=== PATIENT | male | born 1960 | race Hispanic/Latino ===

== ENCOUNTER 2018-12-12 06:11 | Day surgery (SDC) | payer MEDICARE ==
[~2018-12-12 06:11] MED LIST: ANCEF/STERILE WATER 2 GM/20 ML 2 GM/20 ML SYRINGE IV NR; NACL 0.9% 1000 ML 1,000 ML IV SCH
[2018-12-12] MEDS ORDERED: HEPARIN/NS 5000 UNIT/500ML(CATH LAB) 1,000 ML IR ONE (09:42)
[2018-12-12] MEDS ORDERED: NACL 0.9% 250ML 250 ML ONE (10:03)
[2018-12-12] MEDS: VERSED ONE ×5 (10:08→11:24)
[2018-12-12] MEDS: XYLOCAINE 2% INFILTRATI ONE ×3 (10:09→11:29)
[2018-12-12] MEDS: SUBLIMAZE ONE ×5 (10:09→11:24)
[2018-12-12] MEDS ORDERED: SUBLIMAZE ONE (11:42)
[2018-12-12] MEDS ORDERED: VERSED ONE (11:42)
[2018-12-12] MEDS: HEPARIN 10,000 UNITS/10 ML ONE ×2 (11:44→11:45)
[2018-12-12] MEDS ORDERED: XYLOCAINE 1%/ EPI 1:100,000 INFILTRATI ONE (11:52)
--- NOTE | 2018-12-12 12:01 | Short Stay Summary ---
Short Stay Documentation Date of service: 12/12/18 Narrative H&P: 57 year old male with ESRD with malfunctioning AVF. - History Principal diagnosis: AVF malfunction H&P: obtained from office - Allergies and Medications Current Medications: Allergies No Known Allergies Allergy (Unverified 12/12/18 06:38) Home Medications Medication Instructions Recorded Confirmed Last Taken Type Calcitriol [Rocaltrol] 1 cap PO DAILY 12/12/18 12/12/18 12/10/18 History Furosemide [Lasix TAB] 20 mg PO DAILY 12/12/18 12/12/18 12/10/18 History L.acidoph,Paracasei, B.lactis 1 each PO DAILY 12/12/18 12/12/18 12/10/18 History [Probiotic] Multivit-Min36/Iron/Folic Acid 1 each PO DAILY 12/12/18 12/12/18 12/10/18 History [Geritol Complete Tablet] NIFEdipine [Nifedipine ER] 60 mg PO DAILY 12/12/18 12/12/18 12/10/18 History Nebivolol HCl [Bystolic] 10 mg PO DAILY 12/12/18 12/12/18 12/10/18 History Tamsulosin [Flomax] 0.4 mg PO QDAY 12/12/18 12/12/18 12/10/18 History Venlafaxine [Effexor] 75 mg PO DAILY 12/12/18 12/12/18 12/10/18 History Zolpidem [Ambien] 10 mg PO QHS 12/12/18 12/12/18 12/11/18 History Active Medications Cefazolin Sodium (Ancef/Sterile Water 2 Gm/20 Ml) 2 gm in 20 mls @ 80 mls/hr IV PREOP NR; Protocol Stop: 12/12/18 16:00 Sodium Chloride (Nacl 0.9% 1000 Ml) 1,000 mls @ 42 mls/hr IV DIRECT JACOB - Physical exam General appearance: no acute distress HEENT: EOMI Lungs: Normal air movement Gastrointestinal: normal Extremities: normal temperature, normal color - Brief post op/procedure progress note Date of procedure: 12/12/18 Pre-op diagnosis: AVF malfunction Post-op diagnosis: same Procedure: 1. Ultrasound guided access of the left arm brachio-cephalic AVF 2. Fistulogram 3. Angioplasty of the left subclavian vein with a 12 mm x 60 mm angioplasty balloon 4. Angioplasty of the peripheral cephalic vein with a 12 mm x 60 mm angioplasty balloon 5. Angioplasty of the mid cephalic vein with an 10 mm x 40 mm angioplasty balloon 6. Angioplasty of the cephalic arch with an 8 mm x 80 mm angioplasty balloon 7. Ultrasound guided access of the right internal jugular vein 8. Fluoroscopic guided placement of a right internal jugular tunneled 23 cm tip to cuff dual lumen hemodialysis catheter 9. Fluoroscopic guidance of a central catheter placement Anesthesia: local (w/ conscious sedation) Surgeon: PATRICIA GIBBONS Estimated blood loss: minimal Condition: stable - Hospital course Hospital course: Ultrasound of the left cephalic vein AVF was incredibly deep (x>1 cm) and therefore the vein would not be reliably accessed by HD Placed HD catheter in the right neck and will reassess in 2 weeks If swelling persists, then will need elevation. - Disposition Condition at discharge: Stable Disposition: [id number] TO HOME OR SELFCARE - Discharge Diagnoses (1) Dialysis AV fistula malfunction Status: Acute Short Stay Discharge Plan Activity: advance as tolerated Weight Bearing Status: Weight Bear as Tolerated Diet: renal Wound: keep clean and dry, other (do not get hemodialysis catheter wet or it will get infected ; keep it dry ; sponge baths ; no more showers until catheter removed) Follow up with: TAPAN SANCHEZ DO [Primary Care Provider] - 7 Days
--- NOTE | 2018-12-12 12:04 | Operative Report ---
Operative Report Operative Report: EXAM: 1. Ultrasound guided access of the left arm brachio-cephalic AVF 2. Fistulogram 3. Angioplasty of the left subclavian vein with a 12 mm x 60 mm angioplasty balloon 4. Angioplasty of the peripheral cephalic vein with a 12 mm x 60 mm angioplasty balloon 5. Angioplasty of the mid cephalic vein with an 10 mm x 40 mm angioplasty balloon 6. Angioplasty of the cephalic arch with an 8 mm x 80 mm angioplasty balloon 7. Ultrasound guided access of the right internal jugular vein 8. Fluoroscopic guided placement of a right internal jugular tunneled 23 cm tip to cuff dual lumen hemodialysis catheter 9. Fluoroscopic guidance of a central catheter placement DATE: 12/12/18 PATTERNMAKER: PATRICIA GIBBONS MD INDICATION: AV fistula malfunction with end-stage renal disease MEDICATIONS: Please see nursing report for full details. PROCEDURE: The risks, benefits, and alternatives of the procedure were discussed and w cynthiaten informed consent was obtained. The patient was transported in stable condition to the angiography suite. The patient's left arm AV brachiocephalic fistula was assessed by ultrasound and was patent. The patient was prepped and draped in a sterile fashion. Under ultrasound guidance, the left arm AV fistula was accessed with a 21-gauge micropuncture needle. The area was anesthetized prior to access. 0.018 inch wire was advanced through the micropuncture needle into the fistula and then the needle was exchanged for a 5 Malagasy transitional dilator. The inner dilator and wire were removed and a 0.035 inch wire was advanced through the venous outflow. The transitional dilator was exchanged ultimately for a 7 Malagasy short sheath. Fistulogram was performed of the venous outflow and central veins. Reflux into the arterial anastomosis was performed. Digital subtraction angiography demonstrates a 30% mid cephalic vein stenosis with a large cephalic vein with numerous collateral side branches arising from the cephalic vein fistula. There was a 30% cephalic arch narrowing and a 30% to 40% left subclavian vein narrowing. 12 mm x 60 mm angioplasty balloon was used to perform angioplasty of the subclavian vein and the cephalic arch. 10 mm angioplasty balloon was used to perform angioplasty of the mid cephalic vein and a 12 mm angioplasty balloon which she is to perform angioplasty of the mid cephalic vein. Reflux angiography was performed demonstrating no anastomotic narrowing. There are numerous side branches along the cephalic vein fistula. Ultrasound is used to evaluate the depth of the fistula which was greater than 1 cm deep throughout most of the fistula length making it very difficult to puncture. I realize that this was the most important issue with the fistula and would require PermCath placement and evaluation in 2 weeks to see if the depth had decreased. If it has not decreased, the patient will require a fistula elevation. The wire was removed and the site was closed with a 4-0 Vicryl suture. The sheath was then removed. Hemostasis was achieved with slight manual compression. PermCath access was then prepped for the patient. The patient was prepped and draped in a sterile fashion. The patient's right internal jugular vein was assessed with ultrasound and determined to be patent. The puncture site was anesthetized. Under sonographic guidance, the right internal jugular vein was punctured with a 21-gauge micropuncture needle and a 0.018 inch wire was advanced into the inferior vena cava. The micropuncture needle was exchanged for a transitional dilator and the wire was retracted into the right atrium to simran intravascular distance. The wire and inner dilator were removed. 0.035 inch wire was advanced through the transitional dilator into the inferior vena cava. A suitable exit site was identified on the patient's chest inferior and lateral to the venotomy. The site was anesthetized with local anesthetic and the track was anesthetized. Dermatotomy was made. The PermCath was attached to the tunneling device and tunneled between the dermatotomy to the venotomy. Over the 0.035 inch wire, serial dilatation was performed with ultimate placement of a peel-away sheath. The catheter was advanced through the peel- away sheath after the wire was removed and positioned centrally under fluoroscopic guidance. The peel-away sheath was removed. Excellent flow was obtained through the dialysis catheter with 20 mL syringes. The catheter tip is in the right atrium. 3-0 Vicryl suture was used to close the venotomy and Dermabond was then applied. 2-0 Ethilon suture was used to secure the catheter at the dermatotomy. The catheter was charged with heparin 1000 units/mL space. Sterile dressing and biopatch applied. The patient was transferred from the angiography suite back to the floor in stable condition. IMPRESSION: 1. Successful angioplasty of the central and peripheral dialysis access. 2. Successful placement of a PermCath. Patient will follow-up in 2 weeks in the office for further management.
[2018-12-12 15:21] VITALS: BP 122/56
== END 2018-12-12 06:12 | disposition home or self-care (01) ==
LOC: CATHLABREC 06:11
PROVIDERS: ATTEND Radiology Diagnostic Radiology
DX: T82.510A Breakdown (mechanical) of surgically created arteriovenous fistula, initial encounter (principal); I13.2 Hypertensive heart and chronic kidney disease with heart failure and with stage 5 chronic kidney disease, or end stage renal disease; N18.6 End stage renal disease; I50.9 Heart failure, unspecified; D64.9 Anemia, unspecified; M19.90 Unspecified osteoarthritis, unspecified site; F32.9 Major depressive disorder, single episode, unspecified; Z79.899 Other long term (current) drug therapy; Z98.890 Other specified postprocedural states; Y83.2 Surgical operation with anastomosis, bypass or graft as the cause of abnormal reaction of the patient, or of later complication, without mention of misadventure at the time of the procedure
CPT/HCPCS: 36415; 36558; 36902; 36907; 76937; 77001; 84132; 99156; 99157; C1725; C1750; C1751; C1769; C1894; J1644; J2250; J3010; J7050; Q9967

== ENCOUNTER 2021-08-17 21:57 | Inpatient (IN) | payer MEDICARE ==
[2021-08-17] MEDS ORDERED: cefTRIAXone/NS 2 GM/100 ML 2 GM/100 ML BAG IV ONE (22:23)
[2021-08-17] MEDS ORDERED: AZITHROMYCIN/NS 500 MG/250 ML 500 MG/250 ML BAG IV ONE (22:23)
[2021-08-17] MEDS ORDERED: dexAMETHasone 4 MG/ML VIAL IV ONE (22:24)
--- NOTE | 2021-08-17 22:24 | Emergency Department Report ---
ED Shortness of Breath HPI - General Chief Complaint: Dyspnea/Respdistress Stated Complaint: SOB Time Seen by Provider: 08/17/21 22:18 Source: patient, EMS Mode of arrival: Stretcher Limitations: Physical Limitation - History of Present Illness Initial Comments: Patient is a 60-year-old male that [facility] with complaints of cough, fever, shortness of breath. Patient states his symptoms started at 6 PM tonight. Patient states he felt fine prior to that. Patient states that shortness of breath better with rest and worse with exertion. Patient states his cough is better with rest and worse with exertion. Patient dates his cough is dry. Patient denies chest pain. Patient states he has received the first dose of the Pfizer vaccine but was due for the second dose this week. Patient brought in by EMS. Report received from EMS. EMS states that the patient's heart rate was 116, the patient's oxygen saturation was 88% on room air and the patient was placed on 2 L of oxygen and it began satting at 93%. Patient's temperature was 102.4. MD Complaint: shortness of breath, cough -: Sudden Severity: severe Improves With: rest Worsens With: exertion Context: recent URI Associated Symptoms: fever, cough - Related Data Home Medications Medication Instructions Recorded Confirmed Last Taken Furosemide [Lasix TAB] 20 mg PO DAILY 12/12/18 12/12/18 12/10/18 L.acidoph,Paracasei, B.lactis 1 each PO DAILY 12/12/18 12/12/18 12/10/18 [Probiotic] Multivit-Min36/Iron/Folic Acid 1 each PO DAILY 12/12/18 12/12/18 12/10/18 [Geritol Complete Tablet] NIFEdipine [Nifedipine ER] 60 mg PO DAILY 12/12/18 12/12/18 12/10/18 Nebivolol HCl [Bystolic] 10 mg PO DAILY 12/12/18 12/12/18 12/10/18 Tamsulosin [Flomax] 0.4 mg PO QDAY 12/12/18 12/12/18 12/10/18 Venlafaxine [Effexor] 75 mg PO DAILY 12/12/18 12/12/18 12/10/18 Zolpidem (Nf) [Ambien] 10 mg PO QHS 12/12/18 12/12/18 12/11/18 calcitrioL [Rocaltrol] 1 cap PO DAILY 12/12/18 12/12/18 12/10/18 Previous Rx's Medication Instructions Recorded Last Taken Type HYDROcodone/APAP 5-325 [Hugo 1 - 2 each PO Q6HR PRN #25 tablet 12/12/18 Unknown Rx 5/325] Allergies Allergy/AdvReac Type Severity Reaction Status Date / Time No Known Allergies Allergy Unverified 12/12/18 06:38 ED Review of Systems ROS: Stated complaint: SOB Other details as noted in HPI Constitutional: chills, fever Eyes: denies: eye pain, eye discharge, vision change ENT: denies: ear pain, throat pain Respiratory: see HPI, cough, shortness of breath. denies: wheezing Cardiovascular: denies: chest pain, palpitations Endocrine: no symptoms reported Gastrointestinal: denies: abdominal pain, nausea, diarrhea Genitourinary: denies: urgency, dysuria Musculoskeletal: denies: back pain, joint swelling, arthralgia Skin: denies: rash, lesions Neurological: denies: headache, weakness, paresthesias Psychiatric: denies: anxiety, depression Hematological/Lymphatic: denies: easy bleeding, easy bruising ED Past Medical Hx - Past Medical History Previous Medical History?: Yes Hx Hypertension: Yes Hx Heart Attack/AMI: No Hx Congestive Heart Failure: Yes Hx Renal Disease: Yes (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 ,,Sun) Hx Arthritis: Yes Hx Psychiatric Treatment: Yes (depression) Hx HIV: No Additional medical history: BPH, GI bleed, anemia - Surgical History Past Surgical History?: Yes Hx Coronary Stent: No Additional Surgical History: colon, AV fistula, back (L5-S1) - Family History Family history: no significant - Social History Smoking Status: Never Smoker Substance Use Type: None - Medications Home Medications: Home Medications Medication Instructions Recorded Confirmed Last Taken Type Furosemide [Lasix TAB] 20 mg PO DAILY 12/12/18 12/12/18 12/10/18 History HYDROcodone/APAP 5-325 [Hugo 1 - 2 each PO Q6HR PRN #25 tablet 12/12/18 Unknown Rx 5/325] L.acidoph,Paracasei, B.lactis 1 each PO DAILY 12/12/18 12/12/18 12/10/18 History [Probiotic] Multivit-Min36/Iron/Folic Acid 1 each PO DAILY 12/12/18 12/12/18 12/10/18 History [Geritol Complete Tablet] NIFEdipine [Nifedipine ER] 60 mg PO DAILY 12/12/18 12/12/18 12/10/18 History Nebivolol HCl [Bystolic] 10 mg PO DAILY 12/12/18 12/12/18 12/10/18 History Tamsulosin [Flomax] 0.4 mg PO QDAY 12/12/18 12/12/18 12/10/18 History Venlafaxine [Effexor] 75 mg PO DAILY 12/12/18 12/12/18 12/10/18 History Zolpidem (Nf) [Ambien] 10 mg PO QHS 12/12/18 12/12/18 12/11/18 History calcitrioL [Rocaltrol] 1 cap PO DAILY 12/12/18 12/12/18 12/10/18 History ED Physical Exam - General Limitations: Physical Limitation General appearance: alert, in no apparent distress - Head Head exam: Present: atraumatic, normocephalic - Eye Eye exam: Present: normal appearance - ENT ENT exam: Present: mucous membranes moist - Neck Neck exam: Present: normal inspection - Respiratory Respiratory exam: Present: normal lung sounds bilaterally. Absent: respiratory distress - Cardiovascular Cardiovascular Exam: Present: regular rate, normal rhythm. Absent: systolic murmur, diastolic murmur, rubs, gallop - GI/Abdominal GI/Abdominal exam: Present: soft, normal bowel sounds - Rectal Rectal exam: Present: deferred - Extremities Exam Extremities exam: Present: normal inspection - Back Exam Back exam: Present: normal inspection - Neurological Exam Neurological exam: Present: alert, oriented X3 - Psychiatric Psychiatric exam: Present: normal affect, normal mood - Skin Skin exam: Present: warm, dry, intact, normal color. Absent: rash ED Course Vital Signs 08/17/21 08/17/21 08/17/21 22:37 23:14 23:20 Temperature 99.5 F Pulse Rate 117 H 113 H Respiratory 25 H 28 H 23 Rate Blood Pressure Blood Pressure 129/53 [Right] O2 Sat by Pulse 95 90 89 Oximetry 08/17/21 08/18/21 08/18/21 23:30 00:00 00:30 Temperature Pulse Rate 113 H 109 H 110 H Respiratory 19 24 25 H Rate Blood Pressure 124/39 124/39 Blood Pressure [Right] O2 Sat by Pulse 89 89 91 Oximetry 08/18/21 08/18/21 08/18/21 01:00 01:30 02:00 Temperature Pulse Rate 103 H 97 H Respiratory 30 H 16 Rate Blood Pressure 112/40 112/40 133/57 Blood Pressure [Right] O2 Sat by Pulse 92 91 96 Oximetry 08/18/21 08/18/21 08/18/21 02:30 03:00 03:30 Temperature Pulse Rate 95 H 95 H Respiratory 15 18 17 Rate Blood Pressure 133/57 131/54 131/54 Blood Pressure [Right] O2 Sat by Pulse 94 93 95 Oximetry 08/18/21 08/18/21 04:00 04:30 Temperature Pulse Rate 89 Respiratory 22 15 Rate Blood Pressure 140/56 140/56 Blood Pressure [Right] O2 Sat by Pulse 94 96 Oximetry - Reevaluation(s) Reevaluation #1: I discussed all results with patient. I discussed plan of care with patient. Patient agrees with plan of care and admission. Patient to be admitted to the hospitalist service. Patient is still on oxygen support. 08/17/21 23:26 - Consultations Consultation #1: Hospitalist consulted for admission. Hospitalist to admit patient. 08/17/21 23:27 ED Medical Decision Making - Lab Data Result diagrams: 08/17/21 22:40 08/17/21 22:40 - EKG Data -: EKG Interpreted by Me EKG shows normal: sinus rhythm, axis, intervals, QRS complexes, ST-T waves Rate: tachycardia - Radiology Data Radiology results: report reviewed, image reviewed CHEST 1 VIEW INDICATION / CLINICAL INFORMATION: Dyspnea STUDY TIME: 2224 COMPARISON: None FINDINGS: SUPPORT DEVICES: None HEART / MEDIASTINUM: No significant abnormality. LUNGS / PLEURA: Left base is not fully visualized. Mild diffuse increased interstitial markings are seen which could be pulmonary edema or possibly pneumonitis. Focal density in the right base is suspicious for pneumonitis. No pneumothorax. ADDITIONAL FINDINGS: Vascular stent is noted on the left. - Medical Decision Making Patient is a 60-year-old male that presents emergency room with complaints of shortness of breath, cough, fever, hypoxia. Patient brought in by EMS. EMS placed the patient on oxygen because oxygen saturation was 88% on room air. Patient is currently 93% on 2 L. Patient had labs done. Patient's labs show an elevated WBC, elevated inflammatory markers and end-stage renal disease on chemistry. I have reviewed the labs. Patient's chest x-ray was done and it shows bilateral pneumonia. Pressure reviewed the chest x-ray. Patient had EKG done which showed a sinus tachycardia. I personally reviewed the EKG. Patient given Decadron, Zithromax and Rocephin after initial valuation. Patient had blood cultures done. Patient admitted to the hospital service for further evaluation treatment. Patient had a Covid panel and the hospitalist will follow up with the results. Critical care time documented due to the multiple reassessments, prolonged time at the bedside, interpretation of diagnostics and labs. - Differential Diagnosis Covid, shortness of breath, fever, cough, PUI Critical Care Time: Yes Critical care time in (mins) excluding proc time.: 35 Critical care attestation.: If time is entered above; I have spent that time in minutes in the direct care of this critically ill patient, excluding procedure time. Critical Care Time: 35 minutes ED Disposition Clinical Impression: Person under investigation for COVID-19, SOB (shortness of breath), Acute respiratory failure with hypoxia, ESRD (end stage renal disease) on dialysis Fever Qualifiers: Fever type: unspecified Qualified Code(s): R50.9 - Fever, unspecified Respiratory failure Qualifiers: Chronicity: acute Respiratory failure complication: hypoxia Qualified Code(s): J96.01 - Acute respiratory failure with hypoxia Pneumonia Qualifiers: Pneumonia type: due to unspecified organism Laterality: bilateral Lung location: unspecified part of lung Qualified Code(s): J18.9 - Pneumonia, unspecified organism Leukocytosis (leucocytosis) Qualifiers: Leukocytosis type: unspecified Qualified Code(s): D72.829 - Elevated white blood cell count, unspecified Anemia Qualifiers: Anemia type: unspecified type Qualified Code(s): D64.9 - Anemia, unspecified Disposition: 09 ADMITTED INPATIENT Is pt being admited?: No Does the pt Need Aspirin: No Condition: Critical Time of Disposition: 00:01
--- NOTE | 2021-08-17 23:03 | XRay Report ---
CHEST 1 VIEW INDICATION / CLINICAL INFORMATION: Dyspnea STUDY TIME: 2224 COMPARISON: None FINDINGS: SUPPORT DEVICES: None HEART / MEDIASTINUM: No significant abnormality. LUNGS / PLEURA: Left base is not fully visualized. Mild diffuse increased interstitial markings are s een which could be pulmonary edema or possibly pneumonitis. Focal density in the right base is suspic ious for pneumonitis. No pneumothorax. ADDITIONAL FINDINGS: Vascular stent is noted on the left. Signer Name: Carlton Cox MD Signed: 08/17/2021 10:59 PM Workstation Name: [id number]
[2021-08-17 23:10] LABS: Hematocrit 25.4 % (35.5-45.6); Hemoglobin 8.8 gm/dl (11.8-15.2); Mean Corpuscular HGB Conc 35 % (32-34); Mean Corpuscular Volume 91 fl (84-94); Platelet Count 228 K/mm3 (140-440); Red Blood Count 2.78 M/mm3 (3.65-5.03); Red Cell Distribution Width 16.9 % (13.2-15.2)
[2021-08-17 23:20] LABS: Albumin 3.9 g/dL (3.9-5); Calcium 9.6 mg/dL (8.4-10.2)
[2021-08-17 23:41] LABS: Total Cells Counted 100
[2021-08-17 23:43] LABS: Anisocytosis 1+; Platelet Estimate Consistent w Auto; Toxic Vacuolation 1+
--- NOTE | 2021-08-18 00:19 | History and Physical Report ---
History of Present Illness Date of examination: 08/17/21 Date of admission: 08/17/21 Chief complaint: Shortness of breath Cough Generalized weakness History of present illness: This is a 60-year-old male seen in the ED at bedside. Patient is on oxygen by nasal cannula. Oxygen saturation 89 to 92%. Patient reports shortness of breath, generalized body ache, cough and generalized weakness. patient has a history of hypertension and end-stage renal disease.. Patient from a local senior living. Patient states his symptoms started at 6 PM tonight. Patient states that shortness of breath better with rest and worse with exertion. Patient states his cough is better with rest and worse with exertion. Patient states he has received the first dose of the Pfizer vaccine but was due for the second dose this week. I reviewed patient medical record, medication admi nistration, vital signs lab work results. Patient has low H&H 8.8, elevated WBC and D-dimer. Chest x-ray was done showed pneumonia. Infectious disease and or rn have been consulted. Past History Past Medical History: hypertension, renal failure Past Surgical History: Other (Left arm fistula, low back and low back surgery in 1993) Social history: other (Lives in senior living) Family history: no significant family history Medications and Allergies Allergies Allergy/AdvReac Type Severity Reaction Status Date / Time No Known Allergies Allergy Unverified 12/12/18 06:38 Home Medications Medication Instructions Recorded Confirmed Last Taken Type Furosemide [Lasix TAB] 20 mg PO DAILY 12/12/18 12/12/18 12/10/18 History HYDROcodone/APAP 5-325 [[place] 1 - 2 each PO Q6HR PRN #25 tablet 12/12/18 Unknown Rx 5/325] L.acidoph,Paracasei, B.lactis 1 each PO DAILY 12/12/18 12/12/18 12/10/18 History [Probiotic] Multivit-Min36/Iron/Folic Acid 1 each PO DAILY 12/12/18 12/12/18 12/10/18 History [Geritol Complete Tablet] NIFEdipine [Nifedipine ER] 60 mg PO DAILY 12/12/18 12/12/18 12/10/18 History Nebivolol HCl [Bystolic] 10 mg PO DAILY 12/12/18 12/12/18 12/10/18 History Tamsulosin [Flomax] 0.4 mg PO QDAY 12/12/18 12/12/18 12/10/18 History Venlafaxine [Effexor] 75 mg PO DAILY 12/12/18 12/12/18 12/10/18 History Zolpidem (Nf) [Ambien] 10 mg PO QHS 12/12/18 12/12/18 12/11/18 History calcitrioL [Rocaltrol] 1 cap PO DAILY 12/12/18 12/12/18 12/10/18 History Review of Systems Constitutional: anorexia, fatigue, weakness, malaise Ears, nose, mouth and throat: no epistaxis, no bleeding gums Cardiovascular: shortness of breath, high blood pressure, decreased exercise tolerance Gastrointestinal: no BRBPR, no melena Rectal: no itching, no hemorrhoids Musculoskeletal: low back pain, muscle weakness Integumentary: no rash, no pruritis, no redness, no sores Psychiatric: no suicidal ideation Hematologic/Lymphatic: no easy bruising, no easy bleeding Allergic/Immunologic: no urticaria Exam - Constitutional Vitals: Temp Pulse Resp BP Pulse Ox 99.5 F 117 H 28 H 129/53 90 08/17/21 22:37 08/17/21 22:37 08/17/21 23:14 08/17/21 22:37 08/17/21 23:14 General appearance: Present: mild distress - EENT Eyes: Present: PERRL ENT: hearing intact, clear oral mucosa - Neck Neck: Present: supple, normal ROM - Respiratory Respiratory effort: normal Respiratory: bilateral: CTA - Cardiovascular Heart rate: 114 Heart Sounds: Present: S1 & S2. Absent: rub, click - Extremities Extremities: pulses symmetrical, No edema Peripheral Pulses: within normal limits - Abdominal General gastrointestinal: Present: soft, non-tender, non-distended, normal bowel sounds Male genitourinary: Present: normal - Integumentary Integumentary: Present: clear, warm, dry - Musculoskeletal Musculoskeletal: gait normal, strength equal bilaterally - Psychiatric Psychiatric: appropriate mood/affect, intact judgment & insight - Neurologic Neurologic: CNII-XII intact, moves all extremities - Allied Health Allied health notes reviewed: nursing Results - Labs CBC & Chem 7: 08/18/21 05:01 08/18/21 05:01 Labs: Abnormal lab results 08/17/21 08/17/21 08/17/21 Range/Units 22:40 22:40 22:40 WBC 21.2 H (4.5-11.0) K/mm3 RBC 2.78 L (3.65-5.03) M/mm3 Hgb 8.8 L (11.8-15.2) gm/dl Hct 25.4 L (35.5-45.6) % MCHC 35 H (32-34) % RDW 16.9 H (13.2-15.2) % Seg Neuts % (Manual) 94.0 H (40.0-70.0) % Lymphocytes % (Manual) 3.0 L (13.4-35.0) % Seg Neutrophils # Man 19.9 H (1.8-7.7) K/mm3 Lymphocytes # (Manual) 0.6 L (1.2-5.4) K/mm3 D-Dimer 1935.97 H (0-234) ng/mlDDU Sodium 134 L (137-145) mmol/L Potassium 5.5 H (3.6-5.0) mmol/L Chloride 95.1 L (98-107) mmol/L BUN 38 H (9-20) mg/dL Creatinine 4.5 H (0.8-1.3) mg/dL Glucose 115 H (75-100) mg/dL Alkaline Phosphatase 205 H (35-129) units/L Assessment and Plan - Patient Problems (1) Person under investigation for COVID-19 Current Visit: No Status: Acute Plan to address problem: Patient came with shortness of breath- requiring oxygen Patient on oxygen at 2 L nasal cannula oxygen sats 89-92% Continue contact and airborne isolation per Covid protocol ID consultfollow-up with recommendation Ascorbic acid, zinc sulfate and vitamin D supplement. Systemic steroid daily. (2) Acute respiratory failure with hypoxia Current Visit: Yes Status: Acute Plan to address problem: Systemic steroid and oxygen supplement Bronchodilator as needed (3) Fever Current Visit: No Status: Acute Plan to address problem: Tylenol as needed Continue empiric antibiotics Blood culture x2 (4) Pneumonia Current Visit: No Status: Acute Plan to address problem: Likely secondary to COVID-19/bacterial ID consulted Antibiotic therapy and oxygen supplement ABG and serial chest x-ray (5) Leukocytosis (leucocytosis) Current Visit: Yes Status: Acute Qualifiers: Leukocytosis type: unspecified Qualified Code(s): D72.829 - Elevated white blood cell count, unspecified Plan to address problem: Likely secondary to Covid/bacterial infection Patient has been started on antibiotic Blood culture ordered (6) ESRD (end stage renal disease) on dialysis Current Visit: Yes Status: Acute Plan to address problem: Patient has left arm fistula He said he was dialyzed yesterday We will consult or rn (7) Anemia Current Visit: Yes Status: Acute Qualifiers: Anemia type: unspecified type Qualified Code(s): D64.9 - Anemia, unspecified Plan to address problem: Monitor H&H We will transfuse packed red blood cells if H&H is less than 7 Iron and multivitamin supplement (8) Hypertension Current Visit: No Status: Acute Plan to address problem: Monitor blood pressure Resume home antihypertensive As needed hydralazine (9) D-dimer, elevated Current Visit: No Status: Acute Plan to address problem: Monitor inflammatory markers Patient has end-stage renal diseasewill order VQ scan to rule out PE (10) Hypokalemia Current Visit: Yes Status: Acute Plan to address problem: Kayexalate 15 g x 1 Monitor potassium level (11) DVT prophylaxis Current Visit: No Status: Acute Plan to address problem: Subcutaneous heparin
[2021-08-18] MEDS ORDERED: SENNOSIDES 8.6 MG TAB PO PRN (00:34)
[2021-08-18] MEDS ORDERED: MORPHINE 4 MG/1 ML INJ IV PRN (00:34)
[2021-08-18] MEDS ORDERED: ONDANSETRON 4 MG/2 ML INJ IV PRN (00:34)
[2021-08-18] MEDS ORDERED: ALUM-MAG HYDROXIDE-SIMETHICONE 200-200-20MG/5ML ORAL LIQD 30 ML PO PRN (00:34)
[2021-08-18] MEDS ORDERED: MORPHINE 2 MG/1 ML INJ IV PRN (00:34)
[2021-08-18] MEDS ORDERED: MAGNESIUM HYDROXIDE (MOM) ORAL LIQD UDC PO PRN (00:34)
[2021-08-18] MEDS ORDERED: ACETAMINOPHEN 325 MG TAB PO PRN (00:34)
[2021-08-18] MEDS ORDERED: traZODone 50 MG TAB PO PRN (00:43)
[2021-08-18] MEDS ORDERED: HEPARIN 5,000 UNIT/1 ML VIAL SUB-Q SCH (00:45)
[2021-08-18] MEDS ORDERED: hydrALAZINE 20 MG/1 ML INJ IV PRN (00:48)
[2021-08-18] MEDS: oxyCODONE /ACETAMINOPHEN 5-325MG TAB PO PRN ×3 (01:10→17:37)
[2021-08-18 05:15] LABS: Hematocrit 24.6 % (35.5-45.6); Hemoglobin 8.1 gm/dl (11.8-15.2); Mean Corpuscular HGB Conc 33 % (32-34); Mean Corpuscular Volume 92 fl (84-94); Platelet Count 169 K/mm3 (140-440); Red Blood Count 2.67 M/mm3 (3.65-5.03); Red Cell Distribution Width 16.6 % (13.2-15.2)
[2021-08-18 05:37] LABS: Albumin 3.6 g/dL (3.9-5); Calcium 8.9 mg/dL (8.4-10.2)
[2021-08-18 06:27] LABS: Band Neutrophils # (Manual) 2.1 K/mm3; Total Cells Counted 100
[2021-08-18 06:29] LABS: Hypochromasia 1+; Ovalocytes 1+; Platelet Estimate Consistent w Auto
[2021-08-18] MEDS ORDERED: SODIUM POLYSTYRENE 15 GM/60 ML ORAL LIQD PO SCH (07:00)
--- NOTE | 2021-08-18 08:31 | Nuclear Medicine Report ---
NUCLEAR MEDICINE PERFUSION SCAN INDICATION: r/o PE. Elevated d-dimer. CORRELATION: AP chest dated 08/17/2021 at 2225 hours RADIOPHARMACEUTICAL: Perfusion: mCi Tc-99m MAA given IV FINDINGS: The perfusion images demonstrate a small photopenic defect near the left lung apex which correlates w ith the Yqfrpe-a-Cosj and vascular stent. Otherwise there is homogeneous distribution of the radiotra cer throughout both lungs. No segmental perfusion defect is detected. The cardiac silhouette is sligh tly prominent. IMPRESSION: Low probability perfusion scan for pulmonary embolism. Signer Name: Erlin Styles Jr, MD Signed: 08/18/2021 8:27 AM Workstation Name: [id number]
[2021-08-18] MEDS ORDERED: dexAMETHasone 4 MG/ML VIAL IV SCH (10:00)
[2021-08-18] MEDS ORDERED: ENOXAPARIN 100 MG/1 ML INJ SUB-Q SCH (10:00)
[2021-08-18] MEDS ORDERED: NEBIVOLOL HCL PO SCH (10:00)
[2021-08-18] MEDS ORDERED: NON-FORMULARY EACH (Nifedipine [Nifedipine Er] 60 MG Tablet.Er) PO SCH (10:00)
[2021-08-18] MEDS: VENLAFAXINE 75 MG TAB PO SCH (10:31)
[2021-08-18] MEDS: FERROUS SULFATE 325 MG TAB PO SCH (10:31)
[2021-08-18] MEDS: METOPROLOL SUCCINATE XL 100 MG TAB PO SCH (10:31)
[2021-08-18] MEDS: dexAMETHasone 4 MG/ML VIAL IV SCH (10:31)
[2021-08-18] MEDS: CALCITRIOL 0.25 MCG CAP PO SCH (10:31)
[2021-08-18] MEDS: ENOXAPARIN 120 MG/0.8 ML INJ SUB-Q SCH (10:31)
[2021-08-18] MEDS: TAMSULOSIN 0.4 MG CAP PO SCH (10:31)
[2021-08-18] MEDS: NIFEdipine XL 60 MG TAB PO SCH (10:31)
[2021-08-18] MEDS: FUROSEMIDE 20 MG TAB PO SCH (10:31)
[2021-08-18] MEDS: MULTIVITAMINS ,THERAPEUTIC TAB PO SCH (10:32)
[2021-08-18] MEDS: ASCORBIC ACID 500 MG TAB PO SCH (10:32)
[2021-08-18] MEDS: CHOLECALCIFEROL (VIT D3) 1000 UNIT (25 mcg) TAB PO SCH (10:32)
[2021-08-18] MEDS: ZINC SULFATE 220 MG CAP PO SCH (10:32)
--- NOTE | 2021-08-18 11:01 | Progress Note ---
Assessment and Plan Assessment and plan: This is a 60-year-old male seen in the ED at bedside. Patient is on oxygen by nasal cannula. Oxygen saturation 89 to 92%. Patient reports shortness of breath, generalized body ache, cough and generalized weakness. patient has a history of hypertension and end-stage renal disease.. Patient from a local [facility]. Patient states his symptoms started at 6 PM tonight. Patient states that shortness of breath better with rest and worse with exertion. Patient states his cough is better with rest and worse with exertion. Patient states he has received the first dose of the Pfizer vaccine but was due for the second dose this week. I reviewed patient medical record, medication administration, vital signs lab work results. Patient has low H&H 8.8, elevated WBC and D-dimer. Chest x-ray was done showed pneumonia. Infectious disease and housecalls nurse have been consulted. Past History Past Medical History: hypertension, renal failure Past Surgical History: Other (Left arm fistula, low back and low back surgery in 1993) Social history: other (Lives in correction) Family history: no significant family history (1) Person under investigation for COVID-19 Current Visit: No Status: Acute Plan to address problem: Patient came with shortness of breath- requiring oxygen Patient on oxygen at 2 L nasal cannula oxygen sats 89-92% Continue contact and airborne isolation per Covid protocol ID consultfollow-up with recommendation Ascorbic acid, zinc sulfate and vitamin D supplement. Systemic steroid daily. (2) Acute respiratory failure with hypoxia Current Visit: Yes Status: Acute Plan to address problem: Systemic steroid and oxygen supplement Bronchodilator as needed (3) Sepsis Current Visit: No Status: Acute Plan to address problem: Tylenol as needed Continue empiric antibiotics Blood culture x2 (4) Pneumonia Current Visit: No Status: Acute Plan to address problem: Likely secondary to COVID-19/bacterial ID consulted Antibiotic therapy and oxygen supplement ABG and serial chest x-ray (5) Leukocytosis (leucocytosis) Current Visit: Yes Status: Acute Qualifiers: Leukocytosis type: unspecified Qualified Code(s): D72.829 - Elevated white blood cell count, unspecified Plan to address problem: Likely secondary to Covid/bacterial infection Patient has been started on antibiotic Blood culture ordered (6) ESRD (end stage renal disease) on dialysis Current Visit: Yes Status: Acute Plan to address problem: Patient has left arm fistula He said he was dialyzed yesterday We will consult housecalls nurse (7) Anemia Current Visit: Yes Status: Acute Qualifiers: Anemia type: unspecified type Qualified Code(s): D64.9 - Anemia, unspecified Plan to address problem: Monitor H&H We will transfuse packed red blood cells if H&H is less than 7 Iron and multivitamin supplement (8) Hypertension Current Visit: No Status: Acute Plan to address problem: Monitor blood pressure Resume home antihypertensive As needed hydralazine (9) D-dimer, elevated Current Visit: No Status: Acute Plan to address problem: Monitor inflammatory markers Patient has end-stage renal diseasewill order VQ scan to rule out PE (10) Hypokalemia Current Visit: Yes Status: Acute Plan to address problem: Kayexalate 15 g x 1 Monitor potassium level (11) DVT prophylaxis Current Visit: No Status: Acute Plan to address problem: Subcutaneous heparin 08/19: Will continue current management, awaiting V/Q scan and also continue abx. Awaiting COVID Testing, nephroplogist consulted. 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 GENERAL: The patient appears normally developed, Vital signs as documented. HEAD: No signs of head trauma. EYES: Pupils are equal. Extraocular motions intact. EARS: Hearing grossly intact. MOUTH: Oropharynx is normal. NECK: No adenopathy, no JVD. CHEST: Chest with the breath sounds bilaterally. No wheezes, rales, or rho nchi. CARDIAC: Regular rate and rhythm. S1 and S2, without murmurs, gallops, or rubs. VASCULAR: No Edema. Peripheral pulses normal and equal in all extremities. ABDOMEN: Soft, non tender and non distended. No rebound or guarding, and no masses palpated. Bowel Sounds normal. MUSCULOSKELETAL: Mild atrophy bilateral lower extremity with dependent edema and multiple excoriation lesions of bilateral lower extremity with dressing in place. Edema is +2 NEUROLOGIC EXAM: Alert and oriented x 3 No focal sensory or strength deficits. Speech normal. Follows commands. PSYCHIATRIC: Mood normal. SKIN: detail exam as documented in skin assessment - Constitutional Vitals: Temp Pulse Resp BP Pulse Ox 99.5 F 88 19 127/81 99 08/17/21 22:37 08/18/21 10:56 08/18/21 10:56 08/18/21 10:56 08/18/21 10:56 General appearance: Present: mild distress Results - Labs CBC & Chem 7: 08/19/21 07:40 08/19/21 07:40 Labs: Laboratory Last Values WBC 30.7 K/mm3 (4.5-11.0) H 08/18/21 05:01 RBC 2.67 M/mm3 (3.65-5.03) L 08/18/21 05:01 Hgb 8.1 gm/dl (11.8-15.2) L 08/18/21 05:01 Hct 24.6 % (35.5-45.6) L 08/18/21 05:01 MCV 92 fl (84-94) 08/18/21 05:01 MCH 30 pg (28-32) 08/18/21 05:01 MCHC 33 % (32-34) 08/18/21 05:01 RDW 16.6 % (13.2-15.2) H 08/18/21 05:01 Plt Count 169 K/mm3 (140-440) 08/18/21 05:01 Add Manual Diff Complete 08/18/21 05:01 Total Counted 100 08/18/21 05:01 Seg Neutrophils % [place] Tender 08/18/21 05:01 Seg Neuts % (Manual) 87.0 % (40.0-70.0) H 08/18/21 05:01 Band Neutrophils % 7.0 % 08/18/21 05:01 Lymphocytes % (Manual) 1.0 % (13.4-35.0) L 08/18/21 05:01 Reactive Lymphs % (Man) 1.0 % 08/18/21 05:01 Monocytes % (Manual) 3.0 % (0.0-7.3) 08/18/21 05:01 Metamyelocytes % 1.0 % 08/18/21 05:01 Nucleated RBC % Not Reportable 08/18/21 05:01 Seg Neutrophils # Man 26.7 K/mm3 (1.8-7.7) H 08/18/21 05:01 Band Neutrophils # 2.1 K/mm3 08/18/21 05:01 Lymphocytes # (Manual) 0.3 K/mm3 (1.2-5.4) L 08/18/21 05:01 Abs React Lymphs (Man) 0.3 K/mm3 08/18/21 05:01 Monocytes # (Manual) 0.9 K/mm3 (0.0-0.8) H 08/18/21 05:01 Eosinophils # (Manual) 0.0 K/mm3 (0.0-0.4) 08/18/21 05:01 Basophils # (Manual) 0.0 K/mm3 (0.0-0.1) 08/18/21 05:01 Metamyelocytes # 0.3 K/mm3 08/18/21 05:01 Myelocytes # 0.0 K/mm3 08/18/21 05:01 Promyelocytes # 0.0 K/mm3 08/18/21 05:01 Blast Cells # 0.0 K/mm3 08/18/21 05:01 WBC Morphology Not Reportable 08/18/21 05:01 Hypersegmented Neuts Not Reportable 08/18/21 05:01 Hyposegmented Neuts Not Reportable 08/18/21 05:01 Hypogranular Neuts Not Reportable 08/18/21 05:01 Smudge Cells Not Reportable 08/18/21 05:01 Toxic Granulation Not Reportable 08/18/21 05:01 Toxic Vacuolation Not Reportable 08/18/21 05:01 Dohle Bodies Not Reportable 08/18/21 05:01 Pelger-Huet Anomaly Not Reportable 08/18/21 05:01 Matthew Rods Not Reportable 08/18/21 05:01 Platelet Estimate Consistent w auto 08/18/21 05:01 Clumped Platelets Not Reportable 08/18/21 05:01 Plt Clumps, EDTA Not Reportable 08/18/21 05:01 Large Platelets Not Reportable 08/18/21 05:01 Giant Platelets Not Reportable 08/18/21 05:01 Platelet Satelliting Not Reportable 08/18/21 05:01 Plt Morphology Comment Not Reportable 08/18/21 05:01 RBC Morphology Not Reportable 08/18/21 05:01 Dimorphic RBCs Not Reportable 08/18/21 05:01 Polychromasia Not Reportable 08/18/21 05:01 Hypochromasia 1+ 08/18/21 05:01 Poikilocytosis Not Reportable 08/18/21 05:01 Anisocytosis Not Reportable 08/18/21 05:01 Microcytosis Not Reportable 08/18/21 05:01 Macrocytosis Not Reportable 08/18/21 05:01 Spherocytes Not Reportable 08/18/21 05:01 Pappenheimer Bodies Not Reportable 08/18/21 05:01 Sickle Cells Not Reportable 08/18/21 05:01 Target Cells Not Reportable 08/18/21 05:01 Tear Drop Cells Not Reportable 08/18/21 05:01 Ovalocytes 1+ 08/18/21 05:01 Helmet Cells Not Reportable 08/18/21 05:01 Moran-Opp Bodies Not Reportable 08/18/21 05:01 [place] Rings Not Reportable 08/18/21 05:01 [place] Cells Not Reportable 08/18/21 05:01 Bite Cells Not Reportable 08/18/21 05:01 Crenated Cell Not Reportable 08/18/21 05:01 Elliptocytes Not Reportable 08/18/21 05:01 Acanthocytes (Spur) Not Reportable 08/18/21 05:01 Rouleaux Not Reportable 08/18/21 05:01 Hemoglobin C Crystals Not Reportable 08/18/21 05:01 Schistocytes Not Reportable 08/18/21 05:01 Malaria parasites Not Reportable 08/18/21 05:01 Ton Bodies Not Reportable 08/18/21 05:01 Hem Pathologist Commnt No 08/18/21 05:01 D-Dimer 1935.97 ng/mlDDU (0-234) H 08/17/21 22:40 Sodium 134 mmol/L (137-145) L 08/18/21 05:01 Potassium 5.3 mmol/L (3.6-5.0) H 08/18/21 05:01 Chloride 97.4 mmol/L (98-107) L 08/18/21 05:01 Carbon Dioxide 26 mmol/L (22-30) 08/18/21 05:01 Anion Gap 16 mmol/L 08/18/21 05:01 BUN 46 mg/dL (9-20) H 08/18/21 05:01 Creatinine 4.8 mg/dL (0.8-1.3) H 08/18/21 05:01 Estimated GFR 12 ml/min 08/18/21 05:01 BUN/Creatinine Ratio 10 % 08/18/21 05:01 Glucose 141 mg/dL (75-100) H 08/18/21 05:01 Hemoglobin A1c 4.4 % (4-6) 08/18/21 05:01 Lactic Acid 1.40 mmol/L (0.7-2.0) 08/17/21 22:40 Calcium 8.9 mg/dL (8.4-10.2) 08/18/21 05:01 Ferritin 458.3 ng/mL (30.0-300.0) H 08/17/21 22:40 Total Bilirubin 0.30 mg/dL (0.1-1.2) 08/18/21 05:01 AST 14 units/L (5-40) 08/18/21 05:01 ALT 9 units/L (7-56) 08/18/21 05:01 Alkaline Phosphatase 182 units/L (35-129) H 08/18/21 05:01 Lactate Dehydrogenase 258 units/L (91-180) H 08/17/21 22:40 C-Reactive Protein 4.00 mg/dL (0.00-1.30) H 08/17/21 22:40 Total Protein 6.9 g/dL (6.3-8.2) 08/18/21 05:01 Albumin 3.6 g/dL (3.9-5) L 08/18/21 05:01 Albumin/Globulin Ratio 1.1 % 08/18/21 05:01 Microbiology: Microbiology 08/17/21 22:40 Peripheral/Venous Blood Culture - Preliminary Culture in Progress 08/17/21 23:17 Peripheral/Venous Blood Culture - Preliminary Culture in Progress Active Medications - Current Medications Current Medications: Generic Name Dose Route Start Last Admin Trade Name Freq PRN Reason Stop Dose Admin Acetaminophen 650 mg 08/18/21 00:34 Acetaminophen 325 Mg Tab PO Q4H PRN Pain MILD(1-3)/Fever >100.5/NARAYAN Al Hydrox/Mg Hydrox/Simethicone 30 ml 08/18/21 00:34 Alum-Mag Hydroxide-Simethicone [id number]/5ml Oral Liqd 30 Ml PO Q4H PRN Indigestion Ascorbic Acid 500 mg 08/18/21 10:00 08/18/21 10:32 Ascorbic Acid 500 Mg Tab PO 500 mg QDAY JACOB Administration Calcitriol 0.25 mcg 08/18/21 10:00 08/18/21 10:31 Calcitriol 0.25 Mcg Cap PO 0.25 mcg DAILY JACOB Administration Cholecalciferol 1,000 unit 08/18/21 10:00 08/18/21 10:32 Cholecalciferol (Vit D3) 1000 Unit (25 Mcg) Tab PO 1,000 unit QDAY JACOB Administration Dexamethasone 8 mg 08/18/21 10:00 08/18/21 10:31 Dexamethasone 4 Mg/Ml Vial IV 08/26/21 10:01 8 mg DAILY JACOB Administration Enoxaparin Sodium 110 mg 08/18/21 10:00 08/18/21 10:31 Enoxaparin 120 Mg/0.8 Ml Inj SUB-Q 110 mg Q24HR JACOB Administration Ferrous Sulfate 325 mg 08/18/21 10:00 08/18/21 10:31 Ferrous Sulfate 325 Mg Tab PO 325 mg QDAY JACOB Administration Furosemide 20 mg 08/18/21 10:00 08/18/21 10:31 Furosemide 20 Mg Tab PO 20 mg DAILY JACOB Administration Hydralazine HCl 5 mg 08/18/21 00:48 Hydralazine 20 Mg/1 Ml Inj IV Q4HR PRN Hypertension Ceftriaxone Sodium 2 gm in 100 mls @ 200 mls/hr 08/18/21 22:00 Rocephin/Ns 2 Gm/100 Ml IV 08/21/21 22:29 Q24H [facility] Protocol Azithromycin 500 mg in 250 mls @ 250 mls/hr 08/18/21 22:00 Zithromax/Ns IV 08/21/21 22:59 Q24H [facility] Protocol Magnesium Hydroxide 30 ml 08/18/21 00:34 Magnesium Hydroxide (Mom) Oral Liqd Udc PO Q4H PRN Constipation Metoprolol Succinate 100 mg 08/18/21 10:00 08/18/21 10:31 Metoprolol Succinate Xl 100 Mg Tab PO 100 mg QDAY JACOB Administration Morphine Sulfate 2 mg 08/18/21 00:34 08/18/21 06:00 Morphine 2 Mg/1 Ml Inj IV 2 mg Q4H PRN Administration Pain, Moderate (4-6) Morphine Sulfate 4 mg 08/18/21 00:34 Morphine 4 Mg/1 Ml Inj IV Q4H PRN Pain , Severe (7-10) Multivitamins 1 each 08/18/21 10:00 08/18/21 10:32 Multivitamins ,Therapeutic Tab PO 1 each QDAY JACOB Administration Nifedipine 60 mg 08/18/21 10:00 08/18/21 10:31 Nifedipine Xl 60 Mg Tab PO 60 mg DAILY JACOB Administration Ondansetron HCl 4 mg 08/18/21 00:34 Ondansetron 4 Mg/2 Ml Inj IV Q8H PRN Nausea And Vomiting Oxycodone/Acetaminophen 1 tab 08/18/21 00:34 08/18/21 10:33 Oxycodone /Acetaminophen 5-325mg Tab PO 1 tab Q6H PRN Administration Pain, Moderate (4-6) Senna 8.6 mg 08/18/21 00:34 Sennosides 8.6 Mg Tab PO Q12HR PRN Constipation Sodium Chloride 10 ml 08/18/21 00:34 Sodium Chloride 0.9% 10 Ml Flush Syringe IV PRN PRN LINE FLUSH Tamsulosin HCl 0.4 mg 08/18/21 10:00 08/18/21 10:31 Tamsulosin 0.4 Mg Cap PO 0.4 mg QDAY JACOB Administration Trazodone HCl 50 mg 08/18/21 00:43 Trazodone 50 Mg Tab PO QHS PRN Insomnia Venlafaxine HCl 75 mg 08/18/21 10:00 08/18/21 10:31 Venlafaxine 75 Mg Tab PO 75 mg DAILY JACOB Administration Zinc Sulfate 220 mg 08/18/21 10:00 08/18/21 10:32 Zinc Sulfate 220 Mg Cap PO 220 mg QDAY JACOB Administration
[2021-08-18] MEDS ORDERED: HEPARIN 10,000 UNITS/10 ML VIAL IV PRN (11:06)
[2021-08-18] MEDS ORDERED: SODIUM CHLORIDE 0.9% 100 ML IV PRN (11:06)
[2021-08-18] MEDS ORDERED: EPOETIN ALFA-EPBX 10,000 UNIT/1 ML VIAL SUB-Q PRN (11:06)
--- NOTE | 2021-08-18 11:08 | Event Note ---
Date: 08/18/21 Hemodialysis consent obtained from patient.
--- NOTE | 2021-08-18 13:49 | Consultation ---
History of Present Illness - Reason for Consult Consult date: 08/18/21 end stage renal disease, hyperkalemia - History of Present Illness The patient is a 60 YO male well known to our service with history significant for HTN, Anemia, b/l LE wound, ESRD on hemodialysis (TTS) and Medical non-comp liance [facility] 08/17 with c/o shortness of breath better with rest and worse with exertion of 1 day duration. Patient reports associated cough. Patient states he has received the first dose of the Pfizer vaccine but was due for the second dose this week. In the ED O2 saturation 89 to 92%. Labs reviewed. Chest x-ray R base density suspected of pneumonia. Nephrology was consulted for ESRD management. Past History Past Medical History: anemia, dialysis, ESRD, hypertension Past Surgical History: Other (Left arm fistula, low back and low back surgery in 1993) Social history: other (Lives in care home) Family history: no significant family history Medications and Allergies Allergies Allergy/AdvReac Type Severity Reaction Status Date / Time No Known Allergies Allergy Unverified 12/12/18 06:38 Home Medications Medication Instructions Recorded Confirmed Last Taken Type Furosemide [Lasix TAB] 20 mg PO DAILY 12/12/18 08/18/21 12/10/18 History HYDROcodone/APAP 5-325 [[place] 1 - 2 each PO Q6HR PRN #25 tablet 12/12/18 08/18/21 Unknown Rx 5/325] L.acidoph,Paracasei, B.lactis 1 each PO DAILY 12/12/18 08/18/21 12/10/18 History [Probiotic] Multivit-Min36/Iron/Folic Acid 1 each PO DAILY 12/12/18 08/18/21 12/10/18 History [Geritol Complete Tablet] NIFEdipine [Nifedipine ER] 60 mg PO DAILY 12/12/18 08/18/21 12/10/18 History Nebivolol HCl [Bystolic] 10 mg PO DAILY 12/12/18 08/18/21 12/10/18 History Tamsulosin [Flomax] 0.4 mg PO QDAY 12/12/18 08/18/21 12/10/18 History Venlafaxine [Effexor] 75 mg PO DAILY 12/12/18 08/18/21 12/10/18 History Zolpidem (Nf) [Ambien] 10 mg PO QHS 12/12/18 08/18/21 12/11/18 History calcitrioL [Rocaltrol] 1 cap PO DAILY 12/12/18 08/18/21 12/10/18 History Active Meds: Active Medications Acetaminophen (Acetaminophen 325 Mg Tab) 650 mg PO Q4H PRN PRN Reason: Pain MILD(1-3)/Fever >100.5/NARAYAN Al Hydrox/Mg Hydrox/Simethicone (Alum-Mag Hydroxide-Simethicone [id number]/5ml Oral Liqd 30 Ml) 30 ml PO Q4H PRN PRN Reason: Indigestion Ascorbic Acid (Ascorbic Acid 500 Mg Tab) 500 mg PO QDAY [facility] Last Admin: 08/18/21 10:32 Dose: 500 mg Documented by: Calcitriol (Calcitriol 0.25 Mcg Cap) 0.25 mcg PO DAILY [facility] Last Admin: 08/18/21 10:31 Dose: 0.25 mcg Documented by: Cholecalciferol (Cholecalciferol (Vit D3) 1000 Unit (25 Mcg) Tab) 1,000 unit PO QDAY [facility] Last Admin: 08/18/21 10:32 Dose: 1,000 unit Documented by: Dexamethasone (Dexamethasone 4 Mg/Ml Vial) 8 mg IV DAILY [facility] Stop: 08/26/21 10:01 Last Admin: 08/18/21 10:31 Dose: 8 mg Documented by: Enoxaparin Sodium (Enoxaparin 120 Mg/0.8 Ml Inj) 110 mg SUB-Q Q24HR [facility] Last Admin: 08/18/21 10:31 Dose: 110 mg Documented by: Ferrous Sulfate (Ferrous Sulfate 325 Mg Tab) 325 mg PO QDAY [facility] Last Admin: 08/18/21 10:31 Dose: 325 mg Documented by: Furosemide (Furosemide 20 Mg Tab) 20 mg PO DAILY [facility] Last Admin: 08/18/21 10:31 Dose: 20 mg Documented by: Heparin Sodium (Porcine) (Heparin 10,000 Units/10 Ml Vial) 3,000 unit IV YRN PRN PRN Reason: hemodialysis Hydralazine HCl (Hydralazine 20 Mg/1 Ml Inj) 5 mg IV Q4HR PRN PRN Reason: Hypertension Ceftriaxone Sodium (Rocephin/Ns 2 Gm/100 Ml) 2 gm in 100 mls @ 200 mls/hr IV Q24H [facility]; Protocol Stop: 08/21/21 22:29 Azithromycin (Zithromax/Ns) 500 mg in 250 mls @ 250 mls/hr IV Q24H [facility]; Protocol Stop: 08/21/21 22:59 Sodium Chloride (Nacl 0.9%) 100 mls @ 999 mls/hr IV YRN PRN PRN Reason: Hypotension Magnesium Hydroxide (Magnesium Hydroxide (Mom) Oral Liqd Udc) 30 ml PO Q4H PRN PRN Reason: Constipation Metoprolol Succinate (Metoprolol Succinate Xl 100 Mg Tab) 100 mg PO QDAY [facility] Last Admin: 08/18/21 10:31 Dose: 100 mg Documented by: Morphine Sulfate (Morphine 2 Mg/1 Ml Inj) 2 mg IV Q4H PRN PRN Reason: Pain, Moderate (4-6) Last Admin: 08/18/21 06:00 Dose: 2 mg Documented by: Morphine Sulfate (Morphine 4 Mg/1 Ml Inj) 4 mg IV Q4H PRN PRN Reason: Pain , Severe (7-10) Multivitamins (Multivitamins ,Therapeutic Tab) 1 each PO QDAY [facility] Last Admin: 08/18/21 10:32 Dose: 1 each Documented by: Nifedipine (Nifedipine Xl 60 Mg Tab) 60 mg PO DAILY [facility] Last Admin: 08/18/21 10:31 Dose: 60 mg Documented by: Ondansetron HCl (Ondansetron 4 Mg/2 Ml Inj) 4 mg IV Q8H PRN PRN Reason: Nausea And Vomiting Oxycodone/Acetaminophen (Oxycodone /Acetaminophen 5-325mg Tab) 1 tab PO Q6H PRN PRN Reason: Pain, Moderate (4-6) Last Admin: 08/18/21 10:33 Dose: 1 tab Documented by: Senna (Sennosides 8.6 Mg Tab) 8.6 mg PO Q12HR PRN PRN Reason: Constipation Sodium Chloride (Sodium Chloride 0.9% 10 Ml Flush Syringe) 10 ml IV PRN PRN PRN Reason: LINE FLUSH Tamsulosin HCl (Tamsulosin 0.4 Mg Cap) 0.4 mg PO QDAY [facility] Last Admin: 08/18/21 10:31 Dose: 0.4 mg Documented by: Trazodone HCl (Trazodone 50 Mg Tab) 50 mg PO QHS PRN PRN Reason: Insomnia Venlafaxine HCl (Venlafaxine 75 Mg Tab) 75 mg PO DAILY [facility] Last Admin: 08/18/21 10:31 Dose: 75 mg Documented by: Zinc Sulfate (Zinc Sulfate 220 Mg Cap) 220 mg PO QDAY [facility] Last Admin: 08/18/21 10:32 Dose: 220 mg Documented by: Review of Systems Constitutional: no weight loss, no weight gain, no fever, no chills, no anorexia, no fatigue, no weakness Cardiovascular: orthopnea, edema, shortness of breath, paroxysmal nocturnal dyspnea, high blood pressure, leg edema, decreased exercise tolerance, no chest pain, no syncope, no lightheadedness Respiratory: cough, cough with sputum, shortness of breath, dyspnea on exertion, no hemoptysis Gastrointestinal: no abdominal pain, no nausea, no vomiting, no diarrhea, no melena Genitourinary Male: no dysuria, no hematuria Integumentary: wounds, no rash Neurological: no aphasia, no change in speech, no change in mentation, no confusion Exam - Vital Signs Vital signs: Vital Signs Temp Pulse Resp BP Pulse Ox 99.5 F 117 H 25 H 129/53 95 08/17/21 22:37 08/17/21 22:37 08/17/21 22:37 08/17/21 22:37 08/17/21 22:37 Results - Lab Results 08/18/21 05:01 08/18/21 05:01 Most recent lab results Calcium 8.9 mg/dL (8.4-10.2) 08/18/21 05:01 Assessment and Plan 1.ESRD: Patient is on maintenance hemodialysis three times a aweek, TTS schedule. Last outpatient HD 08/16. Hmeodialysis today. 2. FEN: Hyperkalemia, HD today. Volume overload, UF with HD as tolerated. Monitor lytes and volume status. 3. Acute hypoxic resp failure, POA: 2/2 PNA and volume overload. Supplemental O2. Volume control thru HD. Monitor. 4. Pneumonia, POA: Covid-19 negative. Abx. Follow cultures. 5. HTN: Resume home meds and adjust as needed. 6. Normocytic Anemia, POA: Epogen with HD. Trend. 7. Chronic LE wound: wound care. Subjective: Patient was seen and examined at the bedside. Examination: General appearance: well-developed, appears stated age, no distress HEENT: atraumatic Neck: trachea midline Respiratory: diminished breath sounds Heart: S1S2, regular, no murmur Abdomen: soft, obese, bowel sounds heard, NT Integumentary: b/l LE dressing and stasis changes noted Neurologic: AO, non-focal Ext: trace LE edema Hemodialysis access: L arm AVF
--- NOTE | 2021-08-18 14:36 | Consultation ---
History of Present Illness - Reason for Consult Consult date: 08/18/21 PUI Requesting physician: TANIYA MIRAMONTES - History of Present Illness The patient is a 60-year-old male, [facility] with with HTN, ESRD on HD admitted to the hospital with cough, shortness of breath, generalized weakness. Patient has completed partial vaccination against COVID-19. Upon evaluation in the ER, noted to have hypoxia, labs with leukocytosis, D-dimer 19 35, creatinine 4.8, CRP 4.0, procalcitonin 0.16. COVID-19 PCR pending Review of Systems: reviewed in the chart, unable to obtain, minimize risk of transmission Past History Past Medical History: hypertension, renal failure Past Surgical History: Other (Left arm fistula, low back and low back surgery in 1993) Social history: other ([facility] in [facility]) Family history: no significant family history Medications and Allergies Allergies Allergy/AdvReac Type Severity Reaction Status Date / Time No Known Allergies Allergy Unverified 12/12/18 06:38 Home Medications Medication Instructions Recorded Confirmed Last Taken Type Furosemide [Lasix TAB] 20 mg PO DAILY 12/12/18 12/12/18 12/10/18 History HYDROcodone/APAP 5-325 [[place] 1 - 2 each PO Q6HR PRN #25 tablet 12/12/18 Unknown Rx 5/325] L.acidoph,Paracasei, B.lactis 1 each PO DAILY 12/12/18 12/12/18 12/10/18 History [Probiotic] Multivit-Min36/Iron/Folic Acid 1 each PO DAILY 12/12/18 12/12/18 12/10/18 History [Geritol Complete Tablet] NIFEdipine [Nifedipine ER] 60 mg PO DAILY 12/12/18 12/12/18 12/10/18 History Nebivolol HCl [Bystolic] 10 mg PO DAILY 12/12/18 12/12/18 12/10/18 History Tamsulosin [Flomax] 0.4 mg PO QDAY 12/12/18 12/12/18 12/10/18 History Venlafaxine [Effexor] 75 mg PO DAILY 12/12/18 12/12/18 12/10/18 History Zolpidem (Nf) [Ambien] 10 mg PO QHS 12/12/18 12/12/18 12/11/18 History calcitrioL [Rocaltrol] 1 cap PO DAILY 12/12/18 12/12/18 12/10/18 History Active Meds: Active Medications Acetaminophen (Acetaminophen 325 Mg Tab) 650 mg PO Q4H PRN PRN Reason: Pain MILD(1-3)/Fever >100.5/NARAYAN Al Hydrox/Mg Hydrox/Simethicone (Alum-Mag Hydroxide-Simethicone [phone]/5ml Oral Liqd 30 Ml) 30 ml PO Q4H PRN PRN Reason: Indigestion Ascorbic Acid (Ascorbic Acid 500 Mg Tab) 500 mg PO QDAY [facility] Last Admin: 08/18/21 10:32 Dose: 500 mg Documented by: Calcitriol (Calcitriol 0.25 Mcg Cap) 0.25 mcg PO DAILY [facility] Last Admin: 08/18/21 10:31 Dose: 0.25 mcg Documented by: Cholecalciferol (Cholecalciferol (Vit D3) 1000 Unit (25 Mcg) Tab) 1,000 unit PO QDAY [facility] Last Admin: 08/18/21 10:32 Dose: 1,000 unit Documented by: Dexamethasone (Dexamethasone 4 Mg/Ml Vial) 8 mg IV DAILY [facility] Stop: 08/26/21 10:01 Last Admin: 08/18/21 10:31 Dose: 8 mg Documented by: Enoxaparin Sodium (Enoxaparin 120 Mg/0.8 Ml Inj) 110 mg SUB-Q Q24HR [facility] Last Admin: 08/18/21 10:31 Dose: 110 mg Documented by: Ferrous Sulfate (Ferrous Sulfate 325 Mg Tab) 325 mg PO QDAY [facility] Last Admin: 08/18/21 10:31 Dose: 325 mg Documented by: Furosemide (Furosemide 20 Mg Tab) 20 mg PO DAILY [facility] Last Admin: 08/18/21 10:31 Dose: 20 mg Documented by: Heparin Sodium (Porcine) (Heparin 10,000 Units/10 Ml Vial) 3,000 unit IV YRN PRN PRN Reason: hemodialysis Hydralazine HCl (Hydralazine 20 Mg/1 Ml Inj) 5 mg IV Q4HR PRN PRN Reason: Hypertension Ceftriaxone Sodium (Rocephin/Ns 2 Gm/100 Ml) 2 gm in 100 mls @ 200 mls/hr IV Q24H [facility]; Protocol Stop: 08/21/21 22:29 Azithromycin (Zithromax/Ns) 500 mg in 250 mls @ 250 mls/hr IV Q24H [facility]; Protocol Stop: 08/21/21 22:59 Sodium Chloride (Nacl 0.9%) 100 mls @ 999 mls/hr IV YRN PRN PRN Reason: Hypotension Magnesium Hydroxide (Magnesium Hydroxide (Mom) Oral Liqd Udc) 30 ml PO Q4H PRN PRN Reason: Constipation Metoprolol Succinate (Metoprolol Succinate Xl 100 Mg Tab) 100 mg PO QDAY [facility] Last Admin: 08/18/21 10:31 Dose: 100 mg Documented by: Morphine Sulfate (Morphine 2 Mg/1 Ml Inj) 2 mg IV Q4H PRN PRN Reason: Pain, Moderate (4-6) Last Admin: 08/18/21 06:00 Dose: 2 mg Documented by: Morphine Sulfate (Morphine 4 Mg/1 Ml Inj) 4 mg IV Q4H PRN PRN Reason: Pain , Severe (7-10) Multivitamins (Multivitamins ,Therapeutic Tab) 1 each PO QDAY [facility] Last Admin: 08/18/21 10:32 Dose: 1 each Documented by: Nifedipine (Nifedipine Xl 60 Mg Tab) 60 mg PO DAILY [facility] Last Admin: 08/18/21 10:31 Dose: 60 mg Documented by: Ondansetron HCl (Ondansetron 4 Mg/2 Ml Inj) 4 mg IV Q8H PRN PRN Reason: Nausea And Vomiting Oxycodone/Acetaminophen (Oxycodone /Acetaminophen 5-325mg Tab) 1 tab PO Q6H PRN PRN Reason: Pain, Moderate (4-6) Last Admin: 08/18/21 10:33 Dose: 1 tab Documented by: Senna (Sennosides 8.6 Mg Tab) 8.6 mg PO Q12HR PRN PRN Reason: Constipation Sodium Chloride (Sodium Chloride 0.9% 10 Ml Flush Syringe) 10 ml IV PRN PRN PRN Reason: LINE FLUSH Tamsulosin HCl (Tamsulosin 0.4 Mg Cap) 0.4 mg PO QDAY [facility] Last Admin: 08/18/21 10:31 Dose: 0.4 mg Documented by: Trazodone HCl (Trazodone 50 Mg Tab) 50 mg PO QHS PRN PRN Reason: Insomnia Venlafaxine HCl (Venlafaxine 75 Mg Tab) 75 mg PO DAILY [facility] Last Admin: 08/18/21 10:31 Dose: 75 mg Documented by: Zinc Sulfate (Zinc Sulfate 220 Mg Cap) 220 mg PO QDAY [facility] Last Admin: 08/18/21 10:32 Dose: 220 mg Documented by: Physical Examination - Physical Exam Narrative exam: Physical Exam (reviewed in chart to minimize risk of transmission) Constitutional: deferred Head, Ears, Nose: deferred Eyes: deferred Neck: deferred Oral: deferred Cardiovascular: deferred Respiratory: deferred GI: deferred Musculoskeletal: deferred Skin: deferred Hem/Lymphatic: deferred Psych: deferred Neurological: deferred - Constitutional Vitals: Vital Signs Temp Pulse Resp BP Pulse Ox 99.5 F 89 19 110/50 97 08/17/21 22:37 08/18/21 14:13 08/18/21 14:13 08/18/21 14:13 08/18/21 14:13 Temperature -Last 24 Hours Temperature 99.5 F Results - Labs CBC & Chem 7: 08/18/21 05:01 08/18/21 05:01 Labs: Abnormal lab results 08/17/21 08/17/21 08/17/21 Range/Units 22:40 22:40 22:40 WBC 21.2 H (4.5-11.0) K/mm3 RBC 2.78 L (3.65-5.03) M/mm3 Hgb 8.8 L (11.8-15.2) gm/dl Hct 25.4 L (35.5-45.6) % MCHC 35 H (32-34) % RDW 16.9 H (13.2-15.2) % Seg Neuts % (Manual) 94.0 H (40.0-70.0) % Lymphocytes % (Manual) 3.0 L (13.4-35.0) % Seg Neutrophils # Man 19.9 H (1.8-7.7) K/mm3 Lymphocytes # (Manual) 0.6 L (1.2-5.4) K/mm3 Monocytes # (Manual) (0.0-0.8) K/mm3 D-Dimer 1935.97 H (0-234) ng/mlDDU Sodium 134 L (137-145) mmol/L Potassium 5.5 H (3.6-5.0) mmol/L Chloride 95.1 L (98-107) mmol/L BUN 38 H (9-20) mg/dL Creatinine 4.5 H (0.8-1.3) mg/dL Glucose 115 H (75-100) mg/dL Ferritin (30.0-300.0) ng/mL Alkaline Phosphatase 205 H (35-129) units/L Lactate Dehydrogenase (91-180) units/L C-Reactive Protein (0.00-1.30) mg/dL Albumin (3.9-5) g/dL 08/17/21 08/17/21 08/18/21 Range/Units 22:40 22:40 05:01 WBC 30.7 H (4.5-11.0) K/mm3 RBC 2.67 L (3.65-5.03) M/mm3 Hgb 8.1 L (11.8-15.2) gm/dl Hct 24.6 L (35.5-45.6) % MCHC (32-34) % RDW 16.6 H (13.2-15.2) % Seg Neuts % (Manual) 87.0 H (40.0-70.0) % Lymphocytes % (Manual) 1.0 L (13.4-35.0) % Seg Neutrophils # Man 26.7 H (1.8-7.7) K/mm3 Lymphocytes # (Manual) 0.3 L (1.2-5.4) K/mm3 Monocytes # (Manual) 0.9 H (0.0-0.8) K/mm3 D-Dimer (0-234) ng/mlDDU Sodium (137-145) mmol/L Potassium (3.6-5.0) mmol/L Chloride (98-107) mmol/L BUN (9-20) mg/dL Creatinine (0.8-1.3) mg/dL Glucose 116 H (75-100) mg/dL Ferritin 458.3 H (30.0-300.0) ng/mL Alkaline Phosphatase (35-129) units/L Lactate Dehydrogenase 258 H (91-180) units/L C-Reactive Protein 4.00 H (0.00-1.30) mg/dL Albumin (3.9-5) g/dL 08/18/21 Range/Units 05:01 WBC (4.5-11.0) K/mm3 RBC (3.65-5.03) M/mm3 Hgb (11.8-15.2) gm/dl Hct (35.5-45.6) % MCHC (32-34) % RDW (13.2-15.2) % Seg Neuts % (Manual) (40.0-70.0) % Lymphocytes % (Manual) (13.4-35.0) % Seg Neutrophils # Man (1.8-7.7) K/mm3 Lymphocytes # (Manual) (1.2-5.4) K/mm3 Monocytes # (Manual) (0.0-0.8) K/mm3 D-Dimer (0-234) ng/mlDDU Sodium 134 L (137-145) mmol/L Potassium 5.3 H (3.6-5.0) mmol/L Chloride 97.4 L (98-107) mmol/L BUN 46 H (9-20) mg/dL Creatinine 4.8 H (0.8-1.3) mg/dL Glucose 141 H (75-100) mg/dL Ferritin (30.0-300.0) ng/mL Alkaline Phosphatase 182 H (35-129) units/L Lactate Dehydrogenase (91-180) units/L C-Reactive Protein (0.00-1.30) mg/dL Albumin 3.6 L (3.9-5) g/dL - Imaging and Cardiology Chest x-ray: report reviewed, image reviewed (pneumonitis b/l) Assessment and Plan Cultures: SARS CoV2 PCR: Pending 08/17/2021 blood culture: In process A/P: 60-year-old male, [facility] resident with with HTN, ESRD on HD admitted to the hospital with cough, shortness of breath, generalized weakness: #Sepsis, secondary to pneumonia: VQ scan with low probability for pulmonary embolism. Chest x-ray showed bilateral pneumonitis. #Acute hypoxic respiratory failure: On nasal cannula #ESRD on HD: Renally dose antibiotic #Superficial wounds: Do not appear infected. Recs: Empiric cefepime, vancomycin, renally dosed Follow-up COVID-19 PCR Follow-up cultures Huy Arnett MD, FACP [facility] O: [phone] F: [phone]
[2021-08-18] MEDS ORDERED: VANCOMYCIN 1,750 MG in SODIUM CHLORIDE 0.9% 500 ML 500 ML IV ONE (14:40)
[2021-08-18] MEDS ORDERED: VANCOMYCIN PHARMACY TO DOSE IV SCH (15:00)
[2021-08-18] MEDS ORDERED: VANCOMYCIN 2,000 MG in SODIUM CHLORIDE 0.9% 500 ML 500 ML IV ONE (16:00)
[2021-08-18 16:45] LABS: Hepatitis C Virus Antibody Non-Reactive (NonReactive)
[2021-08-18 16:47] LABS: Hepatitis B Surface Antigen Nonreactive (Negative)
[2021-08-18] MEDS: CEFEPIME/NS 1 GM/100 ML 1 GM/100 ML BAG IV SCH (17:30)
[2021-08-18] MEDS ORDERED: AZITHROMYCIN/NS 500 MG/250 ML 500 MG/250 ML BAG IV SCH (22:00)
[2021-08-18] MEDS ORDERED: cefTRIAXone/NS 2 GM/100 ML 2 GM/100 ML BAG IV SCH (22:00)
[2021-08-19] MEDS: oxyCODONE /ACETAMINOPHEN 5-325MG TAB PO PRN ×2 (03:23→11:02)
[2021-08-19 08:25] LABS: Basophils # (Auto) 0.1 K/mm3 (0.0-0.1); Basophils % (Auto) 0.5 % (0.0-1.8); Eosinophils % (Auto) 0.1 % (0.0-4.3); Hematocrit 23.9 % (35.5-45.6); Lymphocytes # (Auto) 0.8 K/mm3 (1.2-5.4); Lymphocytes % (Auto) 4.4 % (13.4-35.0); Mean Corpuscular HGB Conc 33 % (32-34); Mean Corpuscular Volume 91 fl (84-94); Monocytes % (Auto) 5.6 % (0.0-7.3); Platelet Count 164 K/mm3 (140-440); Red Blood Count 2.62 M/mm3 (3.65-5.03); Red Cell Distribution Width 17.1 % (13.2-15.2)
--- NOTE | 2021-08-19 08:39 | Progress Note ---
Assessment and Plan 1.ESRD: Patient is on maintenance hemodialysis three times a aweek, TTS schedule. Last outpatient HD 08/16. Hmeodialysis: 08/18. 2. FEN: Hyperkalemia, s/p improved. Volume overload, UF with HD as tolerated. Monitor lytes and volume status. 3. Acute hypoxic resp failure, POA: 2/2 PNA and volume overload. Supplemental O2. Volume control thru HD. Monitor. 4. Pneumonia, POA: Covid-19 negative. Abx. Follow cultures. 5. HTN: Resume home meds and adjust as needed. 6. Normocytic Anemia, POA: Epogen with HD. Trend. 7. Chronic LE wound: Wound care. Subjective: Patient was seen and examined at the bedside. Examination: General appearance: well-developed, appears stated age, no distress HEENT: atraumatic Neck: trachea midline Respiratory: diminished breath sounds Heart: S1S2, regular, no murmur Abdomen: soft, obese, bowel sounds heard, NT Integumentary: b/l LE dressing and stasis changes noted Neurologic: AO, non-focal Ext: trace LE edema Hemodialysis access: L arm AVF Subjective Date of service: 08/19/21 Objective - Vital Signs Vital signs: Vital Signs - 12hr 08/18/21 08/18/21 08/18/21 20:45 21:00 21:15 Temperature Pulse Rate 65 65 63 Respiratory Rate Blood Pressure 106/55 107/53 104/53 Blood Pressure [Right] O2 Sat by Pulse Oximetry O2 Sat by Pulse Oximetry [ Anterior Bilateral] 08/18/21 08/18/21 08/18/21 21:35 21:45 23:13 Temperature 97.9 F Pulse Rate 61 61 64 Respiratory 18 22 Rate Blood Pressure 106/50 107/55 90/32 Blood Pressure [Right] O2 Sat by Pulse 92 Oximetry O2 Sat by Pulse 94 Oximetry [ Anterior Bilateral] 08/18/21 08/19/21 08/19/21 23:23 02:58 03:23 Temperature Pulse Rate 69 Respiratory 16 Rate Blood Pressure Blood Pressure 90/36 101/54 [Right] O2 Sat by Pulse 92 94 Oximetry O2 Sat by Pulse Oximetry [ Anterior Bilateral] - Lab 08/19/21 07:40 08/19/21 07:40 Most recent lab results Calcium 8.9 mg/dL (8.4-10.2) 08/18/21 05:01 Medications & Allergies - Medications Allergies/Adverse Reactions: Allergies No Known Allergies Allergy (Unverified 12/12/18 06:38) Home Medications: Home Medications Medication Instructions Recorded Confirmed Last Taken Type Furosemide [Lasix TAB] 20 mg PO DAILY 12/12/18 08/18/21 12/10/18 History HYDROcodone/APAP 5-325 [[place] 1 - 2 each PO Q6HR PRN #25 tablet 12/12/18 08/18/21 Unknown Rx 5/325] L.acidoph,Paracasei, B.lactis 1 each PO DAILY 12/12/18 08/18/21 12/10/18 History [Probiotic] Multivit-Min36/Iron/Folic Acid 1 each PO DAILY 12/12/18 08/18/21 12/10/18 History [Geritol Complete Tablet] NIFEdipine [Nifedipine ER] 60 mg PO DAILY 12/12/18 08/18/21 12/10/18 History Nebivolol HCl [Bystolic] 10 mg PO DAILY 12/12/18 08/18/21 12/10/18 History Tamsulosin [Flomax] 0.4 mg PO QDAY 12/12/18 08/18/21 12/10/18 History Venlafaxine [Effexor] 75 mg PO DAILY 12/12/18 08/18/21 12/10/18 History Zolpidem (Nf) [Ambien] 10 mg PO QHS 12/12/18 08/18/21 12/11/18 History calcitrioL [Rocaltrol] 1 cap PO DAILY 12/12/18 08/18/21 12/10/18 History Active Medications: Generic Name Dose Route Start Last Admin Trade Name Freq PRN Reason Stop Dose Admin Acetaminophen 650 mg 08/18/21 00:34 Acetaminophen 325 Mg Tab PO Q4H PRN Pain MILD(1-3)/Fever >100.5/NARAYAN Al Hydrox/Mg Hydrox/Simethicone 30 ml 08/18/21 00:34 Alum-Mag Hydroxide-Simethicone [phone]/5ml Oral Liqd 30 Ml PO Q4H PRN Indigestion Ascorbic Acid 500 mg 08/18/21 10:00 08/18/21 10:32 Ascorbic Acid 500 Mg Tab PO 500 mg QDAY JACOB Administration Calcitriol 0.25 mcg 08/18/21 10:00 08/18/21 10:31 Calcitriol 0.25 Mcg Cap PO 0.25 mcg DAILY JACOB Administration Cholecalciferol 1,000 unit 08/18/21 10:00 08/18/21 10:32 Cholecalciferol (Vit D3) 1000 Unit (25 Mcg) Tab PO 1,000 unit QDAY JACOB Administration Dexamethasone 8 mg 08/18/21 10:00 08/18/21 10:31 Dexamethasone 4 Mg/Ml Vial IV 08/26/21 10:01 8 mg DAILY JACOB Administration Enoxaparin Sodium 110 mg 08/18/21 10:00 08/18/21 10:31 Enoxaparin 120 Mg/0.8 Ml Inj SUB-Q 110 mg Q24HR JACOB Administration Ferrous Sulfate 325 mg 08/18/21 10:00 08/18/21 10:31 Ferrous Sulfate 325 Mg Tab PO 325 mg QDAY [facility]ACOB Administration Furosemide 20 mg 08/18/21 10:00 08/18/21 10:31 Furosemide 20 Mg Tab PO 20 mg DAILY JACOB Administration Heparin Sodium (Porcine) 3,000 unit 08/18/21 11:06 Heparin 10,000 Units/10 Ml Vial IV YRN PRN hemodialysis Hydralazine HCl 5 mg 08/18/21 00:48 Hydralazine 20 Mg/1 Ml Inj IV Q4HR PRN Hypertension Sodium Chloride 100 mls @ 999 mls/hr 08/18/21 11:06 Nacl 0.9% IV YRN PRN Hypotension Cefepime HCl 1 gm in 100 mls @ 200 mls/hr 08/18/21 18:00 08/18/21 17:30 Cefepime/Ns 1 Gm/100 Ml IV 200 mls/hr QPM JACOB Administration Protocol Magnesium Hydroxide 30 ml 08/18/21 00:34 Magnesium Hydroxide (Mom) Oral Liqd Udc PO Q4H PRN Constipation Metoprolol Succinate 100 mg 08/18/21 10:00 08/18/21 10:31 Metoprolol Succinate Xl 100 Mg Tab PO 100 mg QDAY JACOB Administration Morphine Sulfate 2 mg 08/18/21 00:34 08/18/21 06:00 Morphine 2 Mg/1 Ml Inj IV 2 mg Q4H PRN Administration Pain, Moderate (4-6) Morphine Sulfate 4 mg 08/18/21 00:34 Morphine 4 Mg/1 Ml Inj IV Q4H PRN Pain , Severe (7-10) Multivitamins 1 each 08/18/21 10:00 08/18/21 10:32 Multivitamins ,Therapeutic Tab PO 1 each QDAY JACOB Administration Nifedipine 60 mg 08/18/21 10:00 08/18/21 10:31 Nifedipine Xl 60 Mg Tab PO 60 mg DAILY JACOB Administration Ondansetron HCl 4 mg 08/18/21 00:34 Ondansetron 4 Mg/2 Ml Inj IV Q8H PRN Nausea And Vomiting Oxycodone/Acetaminophen 1 tab 08/18/21 00:34 08/19/21 03:23 Oxycodone /Acetaminophen 5-325mg Tab PO 1 tab Q6H PRN Administration Pain, Moderate (4-6) Senna 8.6 mg 08/18/21 00:34 Sennosides 8.6 Mg Tab PO Q12HR PRN Constipation Sodium Chloride 10 ml 08/18/21 00:34 Sodium Chloride 0.9% 10 Ml Flush Syringe IV PRN PRN LINE FLUSH Tamsulosin HCl 0.4 mg 08/18/21 10:00 08/18/21 10:31 Tamsulosin 0.4 Mg Cap PO 0.4 mg QDAY JACOB Administration Trazodone HCl 50 mg 08/18/21 00:43 Trazodone 50 Mg Tab PO QHS PRN Insomnia Venlafaxine HCl 75 mg 08/18/21 10:00 08/18/21 10:31 Venlafaxine 75 Mg Tab PO 75 mg DAILY JACOB Administration Zinc Sulfate 220 mg 08/18/21 10:00 08/18/21 10:32 Zinc Sulfate 220 Mg Cap PO 220 mg QDAY JACOB Administration
[2021-08-19 08:52] LABS: Albumin 3.7 g/dL (3.9-5); Calcium 9.1 mg/dL (8.4-10.2)
[2021-08-19] MEDS: VENLAFAXINE 75 MG TAB PO SCH (10:00)
[2021-08-19] MEDS: ENOXAPARIN 120 MG/0.8 ML INJ SUB-Q SCH (10:00)
[2021-08-19] MEDS: CALCITRIOL 0.25 MCG CAP PO SCH (10:44)
[2021-08-19] MEDS: NIFEdipine XL 60 MG TAB PO SCH (10:44)
[2021-08-19] MEDS: FERROUS SULFATE 325 MG TAB PO SCH (10:44)
[2021-08-19] MEDS: FUROSEMIDE 20 MG TAB PO SCH (10:45)
[2021-08-19] MEDS: TAMSULOSIN 0.4 MG CAP PO SCH (10:45)
[2021-08-19] MEDS: METOPROLOL SUCCINATE XL 100 MG TAB PO SCH (10:45)
[2021-08-19] MEDS: dexAMETHasone 4 MG/ML VIAL IV SCH (10:46)
[2021-08-19] MEDS: MULTIVITAMINS ,THERAPEUTIC TAB PO SCH (10:46)
[2021-08-19] MEDS: CHOLECALCIFEROL (VIT D3) 1000 UNIT (25 mcg) TAB PO SCH (10:47)
[2021-08-19] MEDS: ASCORBIC ACID 500 MG TAB PO SCH (10:48)
[2021-08-19] MEDS: ZINC SULFATE 220 MG CAP PO SCH (10:48)
--- NOTE | 2021-08-19 12:11 | Progress Note ---
Assessment and Plan Cultures: SARS CoV2 PCR: negative 08/17/2021 blood culture: no growth A/P: 60-year-old male, [facility] resident with with HTN, ESRD on HD admitted to the hospital with cough, shortness of breath, generalized weakness: #Sepsis, secondary to pneumonia: VQ scan with low probability for pulmonary embolism. Chest x-ray showed bilateral pneumonitis. #Acute hypoxic respiratory failure: On nasal cannula #ESRD on HD: Renally dose antibiotics #Superficial wounds: Do not appear infected. Recs: continue cefepime, vancomycin, renally dosed, D2 of 5 azithromycin x 3 days, added for atypical coverage MRSA nasal PCR ordered, if negative, d/c vancomycin Huy Arnett MD, FACP [facility] ([facility] O: [phone] F: [phone] Subjective Date of service: 08/19/21 Interval history: No fever. COVID-19 PCR came back negative. Patient reports feeling a little better. Has chronic back pain, unchanged. Objective - Exam Narrative Exam: Physical Exam: Constitutional: Alert, cooperative. No acute distress Head, Ears, Nose: Normocephalic, atraumatic. External ears, nose normal Eyes: Conjunctivae/corneas clear. No icterus. No ptosis. Neck: Supple, no meningeal signs Cardiovascular: S1, S2 + Respiratory: AE bilaterally fair GI: Soft, non-tender; bowel sounds normal. No peritoneal signs Musculoskeletal: No pedal edema, no cyanosis. AV fistula site with thrill, no erythema or tenderness. Skin: No rash or abscess Hem/Lymphatic: No palpable cervical or supraclavicular nodes. No lymphangitis Psych: Mood ok. Affect normal Neurological: Awake, alert, oriented. No gross abnormality - Constitutional Vitals: Vital Signs Temp Pulse Resp BP Pulse Ox 97.9 F 69 16 101/54 94 08/18/21 21:45 08/19/21 03:23 08/19/21 03:23 08/19/21 03:23 08/19/21 03:23 Temperature -Last 24 Hours Temperature 97.9 F Temperature 97.9 F Temperature 97.9 F - Labs CBC & Chem 7: 08/19/21 07:40 08/19/21 07:40 Labs: Abnormal lab results 08/18/21 08/18/21 08/19/21 Range/Units 16:05 20:52 07:40 WBC 17.6 H (4.5-11.0) K/mm3 RBC 2.62 L (3.65-5.03) M/mm3 Hgb 8.0 L (11.8-15.2) gm/dl Hct 23.9 L (35.5-45.6) % RDW 17.1 H (13.2-15.2) % Lymph % (Auto) 4.4 L (13.4-35.0) % Lymph # (Auto) 0.8 L (1.2-5.4) K/mm3 [place] # (Auto) 1.0 H (0.0-0.8) K/mm3 Seg Neutrophils % 89.4 H (40.0-70.0) % Seg Neutrophils # 15.8 H (1.8-7.7) K/mm3 BUN (9-20) mg/dL Creatinine (0.8-1.3) mg/dL Glucose (75-100) mg/dL POC Glucose 125 H 171 H (70-105) mg/dL Alkaline Phosphatase (35-129) units/L Albumin (3.9-5) g/dL 08/19/21 08/19/21 Range/Units 07:40 11:36 WBC (4.5-11.0) K/mm3 RBC (3.65-5.03) M/mm3 Hgb (11.8-15.2) gm/dl Hct (35.5-45.6) % RDW (13.2-15.2) % Lymph % (Auto) (13.4-35.0) % Lymph # (Auto) (1.2-5.4) K/mm3 [place] # (Auto) (0.0-0.8) K/mm3 Seg Neutrophils % (40.0-70.0) % Seg Neutrophils # (1.8-7.7) K/mm3 BUN 43 H (9-20) mg/dL Creatinine 3.8 H (0.8-1.3) mg/dL Glucose 104 H (75-100) mg/dL POC Glucose 139 H (70-105) mg/dL Alkaline Phosphatase 157 H (35-129) units/L Albumin 3.7 L (3.9-5) g/dL
[2021-08-19] MEDS: AZITHROMYCIN 250 MG TAB PO SCH (13:03)
--- NOTE | 2021-08-19 14:36 | Progress Note ---
Assessment and Plan Assessment and plan: This is a 60-year-old male seen in the ED at bedside. Patient is on oxygen by nasal cannula. Oxygen saturation 89 to 92%. Patient reports shortness of breath, generalized body ache, cough and generalized weakness. patient has a history of hypertension and end-stage renal disease.. Patient from a local intermediate. Patient states his symptoms started at 6 PM tonight. Patient states that shortness of breath better with rest and worse with exertion. Patient states his cough is better with rest and worse with exertion. Patient states he has received the first dose of the Pfizer vaccine but was due for the second dose this week. I reviewed patient medical record, medication administration, vital signs lab work results. Patient has low H&H 8.8, elevated WBC and D-dimer. Chest x-ray was done showed pneumonia. Infectious disease and residential appraiser have been consulted. Past History Past Medical History: hypertension, renal failure Past Surgical History: Other (Left arm fistula, low back and low back surgery in 1993) Social history: other (Lives in intermediate) Family history: no significant family history (1) Person under investigation for COVID-19 Current Visit: No Status: Acute Plan to address problem: Patient came with shortness of breath- requiring oxygen Patient on oxygen at 2 L nasal cannula oxygen sats 89-92% Continue contact and airborne isolation per Covid protocol ID consultfollow-up with recommendation Ascorbic acid, zinc sulfate and vitamin D supplement. Systemic steroid daily. (2) Acute respiratory failure with hypoxia Current Visit: Yes Status: Acute Plan to address problem: Systemic steroid and oxygen supplement Bronchodilator as needed (3) Sepsis Current Visit: No Status: Acute Plan to address problem: Tylenol as needed Continue empiric antibiotics Blood culture x2 (4) Pneumonia Current Visit: No Status: Acute Plan to address problem: Likely secondary to COVID-19/bacterial ID consulted Antibiotic therapy and oxygen supplement ABG and serial chest x-ray (5) Leukocytosis (leucocytosis) Current Visit: Yes Status: Acute Qualifiers: Leukocytosis type: unspecified Qualified Code(s): D72.829 - Elevated white blood cell count, unspecified Plan to address problem: Likely secondary to Covid/bacterial infection Patient has been started on antibiotic Blood culture ordered (6) ESRD (end stage renal disease) on dialysis Current Visit: Yes Status: Acute Plan to address problem: Patient has left arm fistula He said he was dialyzed yesterday We will consult residential appraiser (7) Anemia Current Visit: Yes Status: Acute Qualifiers: Anemia type: unspecified type Qualified Code(s): D64.9 - Anemia, unspecified Plan to address problem: Monitor H&H We will transfuse packed red blood cells if H&H is less than 7 Iron and multivitamin supplement (8) Hypertension Current Visit: No Status: Acute Plan to address problem: Monitor blood pressure Resume home antihypertensive As needed hydralazine (9) D-dimer, elevated Current Visit: No Status: Acute Plan to address problem: Monitor inflammatory markers Patient has end-stage renal diseasewill order VQ scan to rule out PE (10) Hypokalemia Current Visit: Yes Status: Acute Plan to address problem: Kayexalate 15 g x 1 Monitor potassium level (11) DVT prophylaxis Current Visit: No Status: Acute Plan to address problem: Subcutaneous heparin 08/19: Will continue current management, awaiting V/Q scan and also continue abx. Awaiting COVID Testing, nephrology consulted. 08/20: Patient V/Q scan shows low probability, Continue current abx, COVID 19 was negative. Nephrology, ID input noted. Will also Obtain case management to assist with social issues, wound care consult, although wounds do not appear infected. History Interval history: Patient seen and examined, resting comfortable. No new complaints Hospitalist Physical - Physical exam Narrative exam: VITAL SIGNS: Reviewed. GENERAL: The patient appears normally developed, Vital signs as documented. HEAD: No signs of head trauma. EYES: Pupils are equal. Extraocular motions intact. EARS: Hearing grossly intact. MOUTH: Oropharynx is normal. NECK: No adenopathy, no JVD. CHEST: Chest with the breath sounds bilaterally. No wheezes, rales, or rhonchi. CARDIAC: Regular rate and rhythm. S1 and S2, without murmurs, gallops, or rub s. VASCULAR: No Edema. Peripheral pulses normal and equal in all extremities. ABDOMEN: Soft, non tender and non distended. No rebound or guarding, and no masses palpated. Bowel Sounds normal. MUSCULOSKELETAL: Mild atrophy bilateral lower extremity with dependent edema and multiple excoriation lesions of bilateral lower extremity with dressing in place. Edema is +2 NEUROLOGIC EXAM: Alert and oriented x 3 No focal sensory or strength deficits. Speech normal. Follows commands. PSYCHIATRIC: Mood normal. SKIN: detail exam as documented in skin assessment - Constitutional Vitals: Temp Pulse Resp BP Pulse Ox 97.8 F 73 18 131/50 100 08/19/21 11:35 08/19/21 11:35 08/19/21 11:35 08/19/21 11:35 08/19/21 11:35 General appearance: Present: mild distress Results - Labs CBC & Chem 7: 08/19/21 07:40 08/19/21 07:40 Labs: Laboratory Last Values WBC 17.6 K/mm3 (4.5-11.0) H 08/19/21 07:40 RBC 2.62 M/mm3 (3.65-5.03) L 08/19/21 07:40 Hgb 8.0 gm/dl (11.8-15.2) L 08/19/21 07:40 Hct 23.9 % (35.5-45.6) L 08/19/21 07:40 MCV 91 fl (84-94) 08/19/21 07:40 MCH 31 pg (28-32) 08/19/21 07:40 MCHC 33 % (32-34) 08/19/21 07:40 RDW 17.1 % (13.2-15.2) H 08/19/21 07:40 Plt Count 164 K/mm3 (140-440) 08/19/21 07:40 Lymph % (Auto) 4.4 % (13.4-35.0) L 08/19/21 07:40 [place] % (Auto) 5.6 % (0.0-7.3) 08/19/21 07:40 Eos % (Auto) 0.1 % (0.0-4.3) 08/19/21 07:40 Baso % (Auto) 0.5 % (0.0-1.8) 08/19/21 07:40 Lymph # (Auto) 0.8 K/mm3 (1.2-5.4) L 08/19/21 07:40 [place] # (Auto) 1.0 K/mm3 (0.0-0.8) H 08/19/21 07:40 Eos # (Auto) 0.0 K/mm3 (0.0-0.4) 08/19/21 07:40 Baso # (Auto) 0.1 K/mm3 (0.0-0.1) 08/19/21 07:40 Add Manual Diff Complete 08/18/21 05:01 Total Counted 100 08/18/21 05:01 Seg Neutrophils % 89.4 % (40.0-70.0) H 08/19/21 07:40 Seg Neuts % (Manual) 87.0 % (40.0-70.0) H 08/18/21 05:01 Band Neutrophils % 7.0 % 08/18/21 05:01 Lymphocytes % (Manual) 1.0 % (13.4-35.0) L 08/18/21 05:01 Reactive Lymphs % (Man) 1.0 % 08/18/21 05:01 Monocytes % (Manual) 3.0 % (0.0-7.3) 08/18/21 05:01 Metamyelocytes % 1.0 % 08/18/21 05:01 Nucleated RBC % Not Reportable 08/18/21 05:01 Seg Neutrophils # 15.8 K/mm3 (1.8-7.7) H 08/19/21 07:40 Seg Neutrophils # Man 26.7 K/mm3 (1.8-7.7) H 08/18/21 05:01 Band Neutrophils # 2.1 K/mm3 08/18/21 05:01 Lymphocytes # (Manual) 0.3 K/mm3 (1.2-5.4) L 08/18/21 05:01 Abs React Lymphs (Man) 0.3 K/mm3 08/18/21 05:01 Monocytes # (Manual) 0.9 K/mm3 (0.0-0.8) H 08/18/21 05:01 Eosinophils # (Manual) 0.0 K/mm3 (0.0-0.4) 08/18/21 05:01 Basophils # (Manual) 0.0 K/mm3 (0.0-0.1) 08/18/21 05:01 Metamyelocytes # 0.3 K/mm3 08/18/21 05:01 Myelocytes # 0.0 K/mm3 08/18/21 05:01 Promyelocytes # 0.0 K/mm3 08/18/21 05:01 Blast Cells # 0.0 K/mm3 08/18/21 05:01 WBC Morphology Not Reportable 08/18/21 05:01 Hypersegmented Neuts Not Reportable 08/18/21 05:01 Hyposegmented Neuts Not Reportable 08/18/21 05:01 Hypogranular Neuts Not Reportable 08/18/21 05:01 Smudge Cells Not Reportable 08/18/21 05:01 Toxic Granulation Not Reportable 08/18/21 05:01 Toxic Vacuolation Not Reportable 08/18/21 05:01 Dohle Bodies Not Reportable 08/18/21 05:01 Pelger-Huet Anomaly Not Reportable 08/18/21 05:01 Matthew Rods Not Reportable 08/18/21 05:01 Platelet Estimate Consistent w auto 08/18/21 05:01 Clumped Platelets Not Reportable 08/18/21 05:01 Plt Clumps, EDTA Not Reportable 08/18/21 05:01 Large Platelets Not Reportable 08/18/21 05:01 Giant Platelets Not Reportable 08/18/21 05:01 Platelet Satelliting Not Reportable 08/18/21 05:01 Plt Morphology Comment Not Reportable 08/18/21 05:01 RBC Morphology Not Reportable 08/18/21 05:01 Dimorphic RBCs Not Reportable 08/18/21 05:01 Polychromasia Not Reportable 08/18/21 05:01 Hypochromasia 1+ 08/18/21 05:01 Poikilocytosis Not Reportable 08/18/21 05:01 Anisocytosis Not Reportable 08/18/21 05:01 Microcytosis Not Reportable 08/18/21 05:01 Macrocytosis Not Reportable 08/18/21 05:01 Spherocytes Not Reportable 08/18/21 05:01 Pappenheimer Bodies Not Reportable 08/18/21 05:01 Sickle Cells Not Reportable 08/18/21 05:01 Target Cells Not Reportable 08/18/21 05:01 Tear Drop Cells Not Reportable 08/18/21 05:01 Ovalocytes 1+ 08/18/21 05:01 Helmet Cells Not Reportable 08/18/21 05:01 [place] Bodies Not Reportable 08/18/21 05:01 [place] Rings Not Reportable 08/18/21 05:01 [place]arnell Cells Not Reportable 08/18/21 05:01 Bite Cells Not Reportable 08/18/21 05:01 Crenated Cell Not Reportable 08/18/21 05:01 Elliptocytes Not Reportable 08/18/21 05:01 Acanthocytes (Spur) Not Reportable 08/18/21 05:01 Rouleaux Not Reportable 08/18/21 05:01 Hemoglobin C Crystals Not Reportable 08/18/21 05:01 Schistocytes Not Reportable 08/18/21 05:01 Malaria parasites Not Reportable 08/18/21 05:01 Ton Bodies Not Reportable 08/18/21 05:01 Hem Pathologist Commnt No 08/18/21 05:01 D-Dimer 1935.97 ng/mlDDU (0-234) H 08/17/21 22:40 Sodium 139 mmol/L (137-145) 08/19/21 07:40 Potassium 4.3 mmol/L (3.6-5.0) 08/19/21 07:40 Chloride 99.4 mmol/L (98-107) 08/19/21 07:40 Carbon Dioxide 28 mmol/L (22-30) 08/19/21 07:40 Anion Gap 16 mmol/L 08/19/21 07:40 BUN 43 mg/dL (9-20) H 08/19/21 07:40 Creatinine 3.8 mg/dL (0.8-1.3) H 08/19/21 07:40 Estimated GFR 16 ml/min 08/19/21 07:40 BUN/Creatinine Ratio 11 % 08/19/21 07:40 Glucose 104 mg/dL (75-100) H 08/19/21 07:40 POC Glucose 139 mg/dL (70-105) H 08/19/21 11:36 Hemoglobin A1c 4.4 % (4-6) 08/18/21 05:01 Lactic Acid 1.40 mmol/L (0.7-2.0) 08/17/21 22:40 Calcium 9.1 mg/dL (8.4-10.2) 08/19/21 07:40 Ferritin 458.3 ng/mL (30.0-300.0) H 08/17/21 22:40 Total Bilirubin 0.30 mg/dL (0.1-1.2) 08/19/21 07:40 AST 12 units/L (5-40) 08/19/21 07:40 ALT 8 units/L (7-56) 08/19/21 07:40 Alkaline Phosphatase 157 units/L (35-129) H 08/19/21 07:40 Lactate Dehydrogenase 258 units/L (91-180) H 08/17/21 22:40 C-Reactive Protein 4.00 mg/dL (0.00-1.30) H 08/17/21 22:40 Total Protein 7.8 g/dL (6.3-8.2) 08/19/21 07:40 Albumin 3.7 g/dL (3.9-5) L 08/19/21 07:40 Albumin/Globulin Ratio 0.9 % 08/19/21 07:40 Procalcitonin 0.16 ng/mL (<0.15) 08/17/21 22:40 Coronavirus (PCR) Negative (Negative) 08/18/21 09:32 Hepatitis A IgM Ab Non-reactive (NonReactive) 08/18/21 Unknown Hep Bs Antigen Nonreactive (Negative) 08/18/21 Unknown Hep B Core IgM Ab Non-reactive (NonReactive) 08/18/21 Unknown Hepatitis C Antibody Non-reactive (NonReactive) 08/18/21 Unknown Microbiology: Microbiology 08/17/21 22:40 Peripheral/Venous Blood Culture - Preliminary NO GROWTH AFTER 24 HOURS 08/17/21 23:17 Peripheral/Venous Blood Culture - Preliminary NO GROWTH AFTER 24 HOURS Guy/IV: Voiding Method Incontinent Active Medications - Current Medications Current Medications: Generic Name Dose Route Start Last Admin Trade Name Freq PRN Reason Stop Dose Admin Acetaminophen 650 mg 08/18/21 00:34 Acetaminophen 325 Mg Tab PO Q4H PRN Pain MILD(1-3)/Fever >100.5/NARAYAN Al Hydrox/Mg Hydrox/Simethicone 30 ml 08/18/21 00:34 Alum-Mag Hydroxide-Simethicone [phone]/5ml Oral Liqd 30 Ml PO Q4H PRN Indigestion Azithromycin 500 mg 08/19/21 13:00 08/19/21 13:03 Azithromycin 250 Mg Tab PO 08/21/21 10:01 500 mg QDAY JACOB Administration Protocol Calcitriol 0.25 mcg 08/18/21 10:00 08/19/21 10:44 Calcitriol 0.25 Mcg Cap PO 0.25 mcg DAILY JACOB Administration Enoxaparin Sodium 110 mg 08/18/21 10:00 08/19/21 10:00 Enoxaparin 120 Mg/0.8 Ml Inj SUB-Q 110 mg Q24HR JACOB Administration Ferrous Sulfate 325 mg 08/18/21 10:00 08/19/21 10:44 Ferrous Sulfate 325 Mg Tab PO 325 mg QDAY JACOB Administration Furosemide 20 mg 08/18/21 10:00 08/19/21 10:45 Furosemide 20 Mg Tab PO 20 mg DAILY JACOB Administration Heparin Sodium (Porcine) 3,000 unit 08/18/21 11:06 Heparin 10,000 Units/10 Ml Vial IV YRN PRN hemodialysis Hydralazine HCl 5 mg 08/18/21 00:48 Hydralazine 20 Mg/1 Ml Inj IV Q4HR PRN Hypertension Sodium Chloride 100 mls @ 999 mls/hr 08/18/21 11:06 Nacl 0.9% IV YRN PRN Hypotension Cefepime HCl 1 gm in 100 mls @ 200 mls/hr 08/18/21 18:00 08/18/21 17:30 Cefepime/Ns 1 Gm/100 Ml IV 08/22/21 18:29 200 mls/hr QPM JACOB Administration Protocol Magnesium Hydroxide 30 ml 08/18/21 00:34 Magnesium Hydroxide (Mom) Oral Liqd Udc PO Q4H PRN Constipation Metoprolol Succinate 100 mg 08/18/21 10:00 08/19/21 10:45 Metoprolol Succinate Xl 100 Mg Tab PO 100 mg QDAY JACOB Administration Morphine Sulfate 2 mg 08/18/21 00:34 08/18/21 06:00 Morphine 2 Mg/1 Ml Inj IV 2 mg Q4H PRN Administration Pain, Moderate (4-6) Morphine Sulfate 4 mg 08/18/21 00:34 Morphine 4 Mg/1 Ml Inj IV Q4H PRN Pain , Severe (7-10) Multivitamins 1 each 08/18/21 10:00 08/19/21 10:46 Multivitamins ,Therapeutic Tab PO 1 each QDAY JACOB Administration Nifedipine 60 mg 08/18/21 10:00 08/19/21 10:44 Nifedipine Xl 60 Mg Tab PO 60 mg DAILY JACOB Administration Ondansetron HCl 4 mg 08/18/21 00:34 Ondansetron 4 Mg/2 Ml Inj IV Q8H PRN Nausea And Vomiting Oxycodone/Acetaminophen 1 tab 08/18/21 00:34 08/19/21 11:02 Oxycodone /Acetaminophen 5-325mg Tab PO 1 tab Q6H PRN Administration Pain, Moderate (4-6) Senna 8.6 mg 08/18/21 00:34 Sennosides 8.6 Mg Tab PO Q12HR PRN Constipation Sodium Chloride 10 ml 08/18/21 00:34 Sodium Chloride 0.9% 10 Ml Flush Syringe IV PRN PRN LINE FLUSH Tamsulosin HCl 0.4 mg 08/18/21 10:00 08/19/21 10:45 Tamsulosin 0.4 Mg Cap PO 0.4 mg QDAY JACOB Administration Trazodone HCl 50 mg 08/18/21 00:43 Trazodone 50 Mg Tab PO QHS PRN Insomnia Venlafaxine HCl 75 mg 08/18/21 10:00 08/19/21 10:00 Venlafaxine 75 Mg Tab PO 75 mg DAILY JACOB Administration Nutrition/Malnutrition Assess - Dietary Evaluation Nutrition/Malnutrition Findings: Nutrition Notes Start: 08/19/21 11:31 Freq: Status: Active Protocol: Document 08/19/21 11:31 LINDY (Rec: 08/19/21 12:19 LINDY [id number]) Nutrition Notes Need for Assessment generated from: MD Order Initial or Follow up Assessment Other Pertinent Diagnosis Shortness of breath, Cough, Fatigue, Possible COVID, ESRD Current Diet Renal Diet Labs/Tests 08/19: Na 134, K, 4.3, Cl 99.4 , BUN 43, Cr 3.8. Pertinent Medications Reviewed, Vit C, Vit D3, Mutivit, Zn. Height 6 ft 3 in Weight 108.862 kg [place] Body Weight (kg) 89.09 BMI 29.9 Intake Prior to Admission Good Weight Status Overweight Subjective/Other Information Pt independent, alert, lives in care facility Percent of energy/protein needs met: Pt appears to be fulfilling energy/protein needs at the time Burn Absent Trauma Absent GI Symptoms None Food Allergy No Usual Diet at Home Renal Diet Skin Integrity/Comment Integumentary clear, warm, dry . Current % PO Good (75-100%) Minimum of two criteria No physical signs of malnutrition #1 Nutrition Diagnosis No nutrition diagnosis at this time Comments: Pt has assisted living to comply with dietary needs, tolerates food well,and has no GI issues. Is patient on ventilator? No Is Patient Ambulatory and/or Out of Bed Yes REE-([place] Jeor-ambulatory/OOB) [ 2566.525 NUTR.[id number]] Kcal/Kg value to use for calculation 23 Approximate Energy Requirements Using 2504 kcal/Kg Calculation Used for Recommendations Kcal/kg Additional Notes Protein: 1.0-1.2 g/kg/day; 89- 98 g/day; 356-392 Kcal/day ( from IBW and dialysis) Nutrition Intervention Change Diet Order: Continue Renal Diet Goal #1 Maintain Acceptable lab chemistry values during LOS Goal #2 Maintain body Weight within +/ -3% of actual BW during LOS Follow-Up By: 08/26/21 Additional Comments Monitor tolerance and intake of food and BM.
[2021-08-19] MEDS: CEFEPIME/NS 1 GM/100 ML 1 GM/100 ML BAG IV SCH (17:33)
--- NOTE | 2021-08-19 22:47 | Vascular Lab Report ---
DUPLEX DOPPLER LOWER EXTREMITY VEINS, BILATERAL INDICATION / CLINICAL INFORMATION: dvt. Lower extremity pain and swelling. TECHNIQUE: Duplex doppler imaging was performed through the veins of both lower extremities using venous beau ankur and other maneuvers. COMPARISON: None available. FINDINGS: Right Common Femoral vein: Negative. Right Femoral vein: Negative. Right Popliteal vein: Negative. Right Calf veins: Negative. Left Common Femoral vein: Negative. Left Femoral vein: Negative. Left Popliteal vein: Negative. Left Calf veins: Negative. Additional findings: Mild to moderate subcutaneous edema noted within both lower extremities.. IMPRESSION: 1. No sonographic evidence for DVT in either lower extremity. Signer Name: Regan Briggs MD Signed: 08/19/2021 10:42 PM Workstation Name: [id number]
[2021-08-20] MEDS: oxyCODONE /ACETAMINOPHEN 5-325MG TAB PO PRN ×2 (04:36→11:19)
[2021-08-20 07:54] LABS: Hematocrit 21.8 % (35.5-45.6); Hemoglobin 7.5 gm/dl (11.8-15.2); Mean Corpuscular HGB Conc 34 % (32-34); Mean Corpuscular Volume 92 fl (84-94); Platelet Count 178 K/mm3 (140-440); Red Blood Count 2.37 M/mm3 (3.65-5.03); Red Cell Distribution Width 16.9 % (13.2-15.2)
[2021-08-20 08:18] LABS: Albumin 3.5 g/dL (3.9-5); Calcium 8.8 mg/dL (8.4-10.2)
[2021-08-20] MEDS ORDERED: METOPROLOL SUCCINATE XL 100 MG TAB PO SCH (09:14)
--- NOTE | 2021-08-20 09:14 | Progress Note ---
Assessment and Plan Assessment and plan: This is a 60-year-old male seen in the ED at bedside. Patient is on oxygen by nasal cannula. Oxygen saturation 89 to 92%. Patient reports shortness of breath, generalized body ache, cough and generalized weakness. patient has a history of hypertension and end-stage renal disease.. Patient from a local assisted. Patient states his symptoms started at 6 PM tonight. Patient states that shortness of breath better with rest and worse with exertion. Patient states his cough is better with rest and worse with exertion. Patient states he has received the first dose of the Pfizer vaccine but was due for the second dose this week. I reviewed patient medical record, medication administration, vital signs lab work results. Patient has low H&H 8.8, elevated WBC and D-dimer. Chest x-ray was done showed pneumonia. Infectious disease and road gang supervisor have been consulted. Past History Past Medical History: hypertension, renal failure Past Surgical History: Other (Left arm fistula, low back and low back surgery in 1993) Social history: other (Lives in assisted) Family history: no significant family history (1) Person under investigation for COVID-19 Current Visit: No Status: Acute Plan to address problem: Patient came with shortness of breath- requiring oxygen Patient on oxygen at 2 L nasal cannula oxygen sats 89-92% Continue contact and airborne isolation per Covid protocol ID consultfollow-up with recommendation Ascorbic acid, zinc sulfate and vitamin D supplement. Systemic steroid daily. (2) Acute respiratory failure with hypoxia Current Visit: Yes Status: Acute Plan to address problem: Systemic steroid and oxygen supplement Bronchodilator as needed (3) Sepsis Current Visit: No Status: Acute Plan to address problem: Tylenol as needed Continue empiric antibiotics Blood culture x2 (4) Pneumonia Current Visit: No Status: Acute Plan to address problem: Likely secondary to COVID-19/bacterial ID consulted Antibiotic therapy and oxygen supplement ABG and serial chest x-ray (5) Leukocytosis (leucocytosis) Current Visit: Yes Status: Acute Qualifiers: Leukocytosis type: unspecified Qualified Code(s): D72.829 - Elevated white blood cell count, unspecified Plan to address problem: Likely secondary to Covid/bacterial infection Patient has been started on antibiotic Blood culture ordered (6) ESRD (end stage renal disease) on dialysis Current Visit: Yes Status: Acute Plan to address problem: Patient has left arm fistula He said he was dialyzed yesterday We will consult road gang supervisor (7) Anemia Current Visit: Yes Status: Acute Qualifiers: Anemia type: unspecified type Qualified Code(s): D64.9 - Anemia, unspecified Plan to address problem: Monitor H&H We will transfuse packed red blood cells if H&H is less than 7 Iron and multivitamin supplement (8) Hypertension Current Visit: No Status: Acute Plan to address problem: Monitor blood pressure Resume home antihypertensive As needed hydralazine (9) D-dimer, elevated Current Visit: No Status: Acute Plan to address problem: Monitor inflammatory markers Patient has end-stage renal diseasewill order VQ scan to rule out PE (10) Hypokalemia Current Visit: Yes Status: Acute Plan to address problem: Kayexalate 15 g x 1 Monitor potassium level (11) DVT prophylaxis Current Visit: No Status: Acute Plan to address problem: Subcutaneous heparin 08/19: Will continue current management, awaiting V/Q scan and also continue abx. Awaiting COVID Testing, nephrology consulted. 08/20: Patient V/Q scan shows low probability, lower extremity Doppler also negative for DVT blood pressure mildly low today I have discontinued nifedipine and reduced beta-tri dosing,with holding parameters in place. Continue current abx, COVID 19 was negative. Nephrology, ID input noted. Will also Obtain case management to assist with social issues, wound care consult, although wounds do not appear infected. Patient's respiratory status is improved this may have been secondary to fluid overload in a patient on HD. Anticipate discharge today if cleared by specialist History Interval history: Patient seen and examined, resting comfortable. No new complaints Hospitalist Physical - Constitutional Vitals: Temp Pulse Resp BP Pulse Ox 97.5 F L 71 18 95/43 91 08/20/21 05:16 08/20/21 05:16 08/20/21 05:16 08/20/21 05:16 08/20/21 05:16 General appearance: Present: mild distress Results - Labs CBC & Chem 7: 08/20/21 07:24 08/20/21 07:24 Labs: Laboratory Last Values WBC 11.0 K/mm3 (4.5-11.0) 08/20/21 07:24 RBC 2.37 M/mm3 (3.65-5.03) L 08/20/21 07:24 Hgb 7.5 gm/dl (11.8-15.2) L 08/20/21 07:24 Hct 21.8 % (35.5-45.6) L 08/20/21 07:24 MCV 92 fl (84-94) 08/20/21 07:24 MCH 32 pg (28-32) 08/20/21 07:24 MCHC 34 % (32-34) 08/20/21 07:24 RDW 16.9 % (13.2-15.2) H 08/20/21 07:24 Plt Count 178 K/mm3 (140-440) 08/20/21 07:24 Lymph % (Auto) 4.4 % (13.4-35.0) L 08/19/21 07:40 [place] % (Auto) 5.6 % (0.0-7.3) 08/19/21 07:40 Eos % (Auto) 0.1 % (0.0-4.3) 08/19/21 07:40 Baso % (Auto) 0.5 % (0.0-1.8) 08/19/21 07:40 Lymph # (Auto) 0.8 K/mm3 (1.2-5.4) L 08/19/21 07:40 [place] # (Auto) 1.0 K/mm3 (0.0-0.8) H 08/19/21 07:40 Eos # (Auto) 0.0 K/mm3 (0.0-0.4) 08/19/21 07:40 Baso # (Auto) 0.1 K/mm3 (0.0-0.1) 08/19/21 07:40 Add Manual Diff Complete 08/18/21 05:01 Total Counted 100 08/18/21 05:01 Seg Neutrophils % 89.4 % (40.0-70.0) H 08/19/21 07:40 Seg Neuts % (Manual) 87.0 % (40.0-70.0) H 08/18/21 05:01 Band Neutrophils % 7.0 % 08/18/21 05:01 Lymphocytes % (Manual) 1.0 % (13.4-35.0) L 08/18/21 05:01 Reactive Lymphs % (Man) 1.0 % 08/18/21 05:01 Monocytes % (Manual) 3.0 % (0.0-7.3) 08/18/21 05:01 Metamyelocytes % 1.0 % 08/18/21 05:01 Nucleated RBC % Not Reportable 08/18/21 05:01 Seg Neutrophils # 15.8 K/mm3 (1.8-7.7) H 08/19/21 07:40 Seg Neutrophils # Man 26.7 K/mm3 (1.8-7.7) H 08/18/21 05:01 Band Neutrophils # 2.1 K/mm3 08/18/21 05:01 Lymphocytes # (Manual) 0.3 K/mm3 (1.2-5.4) L 08/18/21 05:01 Abs React Lymphs (Man) 0.3 K/mm3 08/18/21 05:01 Monocytes # (Manual) 0.9 K/mm3 (0.0-0.8) H 08/18/21 05:01 Eosinophils # (Manual) 0.0 K/mm3 (0.0-0.4) 08/18/21 05:01 Basophils # (Manual) 0.0 K/mm3 (0.0-0.1) 08/18/21 05:01 Metamyelocytes # 0.3 K/mm3 08/18/21 05:01 Myelocytes # 0.0 K/mm3 08/18/21 05:01 Promyelocytes # 0.0 K/mm3 08/18/21 05:01 Blast Cells # 0.0 K/mm3 08/18/21 05:01 WBC Morphology Not Reportable 08/18/21 05:01 Hypersegmented Neuts Not Reportable 08/18/21 05:01 Hyposegmented Neuts Not Reportable 08/18/21 05:01 Hypogranular Neuts Not Reportable 08/18/21 05:01 Smudge Cells Not Reportable 08/18/21 05:01 Toxic Granulation Not Reportable 08/18/21 05:01 Toxic Vacuolation Not Reportable 08/18/21 05:01 Dohle Bodies Not Reportable 08/18/21 05:01 Pelger-Huet Anomaly Not Reportable 08/18/21 05:01 Matthew Rods Not Reportable 08/18/21 05:01 Platelet Estimate Consistent w auto 08/18/21 05:01 Clumped Platelets Not Reportable 08/18/21 05:01 Plt Clumps, EDTA Not Reportable 08/18/21 05:01 Large Platelets Not Reportable 08/18/21 05:01 Giant Platelets Not Reportable 08/18/21 05:01 Platelet Satelliting Not Reportable 08/18/21 05:01 Plt Morphology Comment Not Reportable 08/18/21 05:01 RBC Morphology Not Reportable 08/18/21 05:01 Dimorphic RBCs Not Reportable 08/18/21 05:01 Polychromasia Not Reportable 08/18/21 05:01 Hypochromasia 1+ 08/18/21 05:01 Poikilocytosis Not Reportable 08/18/21 05:01 Anisocytosis Not Reportable 08/18/21 05:01 Microcytosis Not Reportable 08/18/21 05:01 Macrocytosis Not Reportable 08/18/21 05:01 Spherocytes Not Reportable 08/18/21 05:01 Pappenheimer Bodies Not Reportable 08/18/21 05:01 Sickle Cells Not Reportable 08/18/21 05:01 Target Cells Not Reportable 08/18/21 05:01 Tear Drop Cells Not Reportable 08/18/21 05:01 Ovalocytes 1+ 08/18/21 05:01 Helmet Cells Not Reportable 08/18/21 05:01 [place] Bodies Not Reportable 08/18/21 05:01 [place] Rings Not Reportable 08/18/21 05:01 Darnell Cells Not Reportable 08/18/21 05:01 Bite Cells Not Reportable 08/18/21 05:01 Crenated Cell Not Reportable 08/18/21 05:01 Elliptocytes Not Reportable 08/18/21 05:01 Acanthocytes (Spur) Not Reportable 08/18/21 05:01 Rouleaux Not Reportable 08/18/21 05:01 Hemoglobin C Crystals Not Reportable 08/18/21 05:01 Schistocytes Not Reportable 08/18/21 05:01 Malaria parasites Not Reportable 08/18/21 05:01 Ton Bodies Not Reportable 08/18/21 05:01 Hem Pathologist Commnt No 08/18/21 05:01 D-Dimer 1935.97 ng/mlDDU (0-234) H 08/17/21 22:40 Sodium 139 mmol/L (137-145) 08/20/21 07:24 Potassium 5.3 mmol/L (3.6-5.0) H D 08/20/21 07:24 Chloride 101.1 mmol/L (98-107) 08/20/21 07:24 Carbon Dioxide 23 mmol/L (22-30) 08/20/21 07:24 Anion Gap 20 mmol/L 08/20/21 07:24 BUN 58 mg/dL (9-20) H 08/20/21 07:24 Creatinine 4.5 mg/dL (0.8-1.3) H 08/20/21 07:24 Estimated GFR 13 ml/min 08/20/21 07:24 BUN/Creatinine Ratio 13 % 08/20/21 07:24 Glucose 110 mg/dL (75-100) H 08/20/21 07:24 POC Glucose 97 mg/dL (70-105) 08/20/21 08:10 Hemoglobin A1c 4.4 % (4-6) 08/18/21 05:01 Lactic Acid 1.40 mmol/L (0.7-2.0) 08/17/21 22:40 Calcium 8.8 mg/dL (8.4-10.2) 08/20/21 07:24 Ferritin 458.3 ng/mL (30.0-300.0) H 08/17/21 22:40 Total Bilirubin 0.40 mg/dL (0.1-1.2) 08/20/21 07:24 AST 10 units/L (5-40) 08/20/21 07:24 ALT 7 units/L (7-56) 08/20/21 07:24 Alkaline Phosphatase 139 units/L (35-129) H 08/20/21 07:24 Lactate Dehydrogenase 258 units/L (91-180) H 08/17/21 22:40 C-Reactive Protein 4.00 mg/dL (0.00-1.30) H 08/17/21 22:40 Total Protein 7.4 g/dL (6.3-8.2) 08/20/21 07:24 Albumin 3.5 g/dL (3.9-5) L 08/20/21 07:24 Albumin/Globulin Ratio 0.9 % 08/20/21 07:24 Procalcitonin 0.16 ng/mL (<0.15) 08/17/21 22:40 Random Vancomycin 12.4 ug/mL (0-40.0) 08/20/21 07:24 Coronavirus (PCR) Negative (Negative) 08/18/21 09:32 Hepatitis A IgM Ab Non-reactive (NonReactive) 08/18/21 Unknown Hep Bs Antigen Nonreactive (Negative) 08/18/21 Unknown Hep B Core IgM Ab Non-reactive (NonReactive) 08/18/21 Unknown Hepatitis C Antibody Non-reactive (NonReactive) 08/18/21 Unknown Microbiology: Microbiology 08/17/21 22:40 Peripheral/Venous Blood Culture - Preliminary NO GROWTH AFTER 48 HOURS 08/17/21 23:17 Peripheral/Venous Blood Culture - Preliminary NO GROWTH AFTER 48 HOURS Guy/IV: Voiding Method Incontinent Active Medications - Current Medications Current Medications: Generic Name Dose Route Start Last Admin Trade Name Freq PRN Reason Stop Dose Admin Acetaminophen 650 mg 08/18/21 00:34 Acetaminophen 325 Mg Tab PO Q4H PRN Pain MILD(1-3)/Fever >100.5/NARAYAN Al Hydrox/Mg Hydrox/Simethicone 30 ml 08/18/21 00:34 Alum-Mag Hydroxide-Simethicone 080-331-43jo/5ml Oral Liqd 30 Ml PO Q4H PRN Indigestion Azithromycin 500 mg 08/19/21 13:00 08/19/21 13:03 Azithromycin 250 Mg Tab PO 08/21/21 10:01 500 mg QDAY JACOB Administration Protocol Calcitriol 0.25 mcg 08/18/21 10:00 08/19/21 10:44 Calcitriol 0.25 Mcg Cap PO 0.25 mcg DAILY JACOB Administration Enoxaparin Sodium 110 mg 08/18/21 10:00 08/19/21 10:00 Enoxaparin 120 Mg/0.8 Ml Inj SUB-Q 110 mg Q24HR JACOB Administration Ferrous Sulfate 325 mg 08/18/21 10:00 08/19/21 10:44 Ferrous Sulfate 325 Mg Tab PO 325 mg QDAY JACOB Administration Furosemide 20 mg 08/18/21 10:00 08/19/21 10:45 Furosemide 20 Mg Tab PO 20 mg DAILY JACOB Administration Heparin Sodium (Porcine) 3,000 unit 08/18/21 11:06 Heparin 10,000 Units/10 Ml Vial IV YRN PRN hemodialysis Hydralazine HCl 5 mg 08/18/21 00:48 Hydralazine 20 Mg/1 Ml Inj IV Q4HR PRN Hypertension Sodium Chloride 100 mls @ 999 mls/hr 08/18/21 11:06 Nacl 0.9% IV YRN PRN Hypotension Cefepime HCl 1 gm in 100 mls @ 200 mls/hr 08/18/21 18:00 08/19/21 17:33 Cefepime/Ns 1 Gm/100 Ml IV 08/22/21 18:29 200 mls/hr QPM JACOB Administration Protocol Magnesium Hydroxide 30 ml 08/18/21 00:34 Magnesium Hydroxide (Mom) Oral Liqd Udc PO Q4H PRN Constipation Morphine Sulfate 2 mg 08/18/21 00:34 08/18/21 06:00 Morphine 2 Mg/1 Ml Inj IV 2 mg Q4H PRN Administration Pain, Moderate (4-6) Morphine Sulfate 4 mg 08/18/21 00:34 Morphine 4 Mg/1 Ml Inj IV Q4H PRN Pain , Severe (7-10) Multivitamins 1 each 08/18/21 10:00 08/19/21 10:46 Multivitamins ,Therapeutic Tab PO 1 each QDAY [facility] Administration Ondansetron HCl 4 mg 08/18/21 00:34 Ondansetron 4 Mg/2 Ml Inj IV Q8H PRN Nausea And Vomiting Oxycodone/Acetaminophen 1 tab 08/18/21 00:34 08/20/21 04:36 Oxycodone /Acetaminophen 5-325mg Tab PO 1 tab Q6H PRN Administration Pain, Moderate (4-6) Senna 8.6 mg 08/18/21 00:34 Sennosides 8.6 Mg Tab PO Q12HR PRN Constipation Sodium Chloride 10 ml 08/18/21 00:34 Sodium Chloride 0.9% 10 Ml Flush Syringe IV PRN PRN LINE FLUSH Tamsulosin HCl 0.4 mg 08/18/21 10:00 08/19/21 10:45 Tamsulosin 0.4 Mg Cap PO 0.4 mg QDAY JACOB Administration Trazodone HCl 50 mg 08/18/21 00:43 Trazodone 50 Mg Tab PO QHS PRN Insomnia Venlafaxine HCl 75 mg 08/18/21 10:00 08/19/21 10:00 Venlafaxine 75 Mg Tab PO 75 mg DAILY JACOB Administration Nutrition/Malnutrition Assess - Dietary Evaluation Nutrition/Malnutrition Findings: Nutrition Notes Start: 08/19/21 11 :31 Freq: Status: Active Protocol: Document 08/19/21 11:31 LINDY (Rec: 08/19/21 12:19 LINDY [id number]) Nutrition Notes Need for Assessment generated from: MD Order Initial or Follow up Assessment Other Pertinent Diagnosis Shortness of breath, Cough, Fatigue, Possible COVID, ESRD Current Diet Renal Diet Labs/Tests 08/19: Na 134, K, 4.3, Cl 99.4 , BUN 43, Cr 3.8. Pertinent Medications Reviewed, Vit C, Vit D3, Mutivit, Zn. Height 6 ft 3 in Weight 108.862 kg [place] Body Weight (kg) 89.09 BMI 29.9 Intake Prior to Admission Good Weight Status Overweight Subjective/Other Information Pt independent, alert, lives in care facility Percent of energy/protein needs met: Pt appears to be fulfilling energy/protein needs at the time Burn Absent Trauma Absent GI Symptoms None Food Allergy No Usual Diet at Home Renal Diet Skin Integrity/Comment Integumentary clear, warm, dry . Current % PO Good (75-100%) Minimum of two criteria No physical signs of malnutrition #1 Nutrition Diagnosis No nutrition diagnosis at this time Comments: Pt has assisted living to comply with dietary needs, tolerates food well,and has no GI issues. Is patient on ventilator? No Is Patient Ambulatory and/or Out of Bed Yes REE-([facility]-ambulatory/OOB) [ 2566.525 NUTR.[id number]] Kcal/Kg value to use for calculation 23 Approximate Energy Requirements Using 2504 kcal/Kg Calculation Used for Recommendations Kcal/kg Additional Notes Protein: 1.0-1.2 g/kg/day; 89- 98 g/day; 356-392 Kcal/day ( from IB[facility] and dialysis) Nutrition Intervention Change Diet Order: Continue Renal Diet Goal #1 Maintain Acceptable lab chemistry values during LOS Goal #2 Maintain body Weight within +/ -3% of actual BW during LOS Follow-Up By: 08/26/21 Additional Comments Monitor tolerance and intake of food and BM.
[2021-08-20] MEDS ORDERED: METOPROLOL SUCCINATE XL 50 MG TAB PO SCH (10:00)
--- NOTE | 2021-08-20 10:37 | Discharge Summary ---
Providers - Providers Date of Admission: 08/18/21 10:06 Attending physician: ALISE SHEPARD MD 08/18/21 00:34 Consult to Physician [CONS] Routine Comment: Consulting Provider: ANIRUDH STEWART Physician Instructions: Reason For Exam: ESRD Consult to Physician [CONS] Routine Comment: Consulting Provider: ESTEE LUNDBERG Physician Instructions: Reason For Exam: PUI 08/19/21 14:18 Consult to Wound/ET Nurse [CONS] Routine Reason For Exam: wound eval Primary care physician: BUMP GRADER OPERATOR Hospitalization Reason for admission: Shortness of breath Condition: Stable Hospital course: This is a 60-year-old male seen in the ED at bedside. Patient is on oxygen by nasal cannula. Oxygen saturation 89 to 92%. Patient reports shortness of breath, generalized body ache, cough and generalized weakness. patient has a history of hypertension and end-stage renal disease.. Patient from a local senior living. Patient states his symptoms started at 6 PM tonight. Patient states that shortness of breath better with rest and worse with exertion. Patient states his cough is better with rest and worse with exertion. Patient states he has received the first dose of the Pfizer vaccine but was due for the second dose this week. I reviewed patient medical record, medication administration, vital signs lab work results. Patient has low H&H 8.8, elevated WBC and D-dimer. Chest x-ray was done showed pneumonia. Infectious disease and gusset ripper have been consulted. Past History Past Medical History: hypertension, renal failure Past Surgical History: Other (Left arm fistula, low back and low back surgery in 1993) Social history: other (Lives in senior living) Family history: no significant family history (1) Person under investigation for COVID-19 Current Visit: No Status: Acute Plan to address problem: Patient came with shortness of breath- requiring oxygen Patient on oxygen at 2 L nasal cannula oxygen sats 89-92% Continue contact and airborne isolation per Covid protocol ID consultfollow-up with recommendation Ascorbic acid, zinc sulfate and vitamin D supplement. Systemic steroid daily. (2) Acute respiratory failure with hypoxia Current Visit: Yes Status: Acute Plan to address problem: Systemic steroid and oxygen supplement Bronchodilator as needed (3) Sepsis Current Visit: No Status: Acute Plan to address problem: Tylenol as needed Continue empiric antibiotics Blood culture x2 (4) Pneumonia Current Visit: No Status: Acute Plan to address problem: Likely secondary to COVID-19/bacterial ID consulted Antibiotic therapy and oxygen supplement ABG and serial chest x-ray (5) Leukocytosis (leucocytosis) Current Visit: Yes Status: Acute Qualifiers: Leukocytosis type: unspecified Qualified Code(s): D72.829 - Elevated white blood cell count, unspecified Plan to address problem: Likely secondary to Covid/bacterial infection Patient has been started on antibiotic Blood culture ordered (6) ESRD (end stage renal disease) on dialysis Current Visit: Yes Status: Acute Plan to address problem: Patient has left arm fistula He said he was dialyzed yesterday We will consult gusset ripper (7) Anemia Current Visit: Yes Status: Acute Qualifiers: Anemia type: unspecified type Qualified Code(s): D64.9 - Anemia, unspecified Plan to address problem: Monitor H&H We will transfuse packed red blood cells if H&H is less than 7 Iron and multivitamin supplement (8) Hypertension Current Visit: No Status: Acute Plan to address problem: Monitor blood pressure Resume home antihypertensive As needed hydralazine (9) D-dimer, elevated Current Visit: No Status: Acute Plan to address problem: Monitor inflammatory markers Patient has end-stage renal diseasewill order VQ scan to rule out PE (10) Hypokalemia Current Visit: Yes Status: Acute Plan to address problem: Kayexalate 15 g x 1 Monitor potassium level (11) chronic back pain Plan to address problem: Subcutaneous heparin 08/19: Will continue current management, awaiting V/Q scan and also continue abx. Awaiting COVID Testing, nephrology consulted. 08/20: Patient V/Q scan shows low probability, lower extremity Doppler also negative for DVT Continue current abx, COVID 19 was negative. Nephrology, ID input noted. Will also Obtain case management to assist with social issues, wound care consult, although wounds do not appear infected. Patient's respiratory status is improved this may have been secondary to fluid overload in a patient on HD. Anticipate discharge today if cleared by specialist patient tells me he does not take any blood pressure medications at home as a result of discontinue his blood pressure medicine he lives at the [facility] says his blood pressure runs pretty low. He reports that while he may have had shortness of breath is because he missed dialysis the week before Sunday also due to low back pain that was severe sciatica consult. From his description it appears that he may benefit from being on midodrine. Wound care was evaluated patient will continue with outpatient wound care management. Disposition: [facility] Final Discharge Diagnosis (Prints w/discharge instructions): Acute hypoxic respiratory failure with volume overload and end-stage renal disease patient Time spent for discharge: 35 minutes Core Measure Documentation - Palliative Care Palliative Care/ Comfort Measures: Not Applicable - Core Measures Any of the following diagnoses?: none Exam - Physical Exam Narrative exam: VITAL SIGNS: Reviewed. GENERAL: The patient appears normally developed, Vital signs as documented. HEAD: No signs of head trauma. EYES: Pupils are equal. Extraocular motions intact. EARS: Hearing grossly intact. MOUTH: Oropharynx is normal. NECK: No adenopathy, no JVD. CHEST: Chest with the breath sounds bilaterally. No wheezes, rales, or rhonchi. CARDIAC: Regular rate and rhythm. S1 and S2, without murmurs, gallops, or rubs. VASCULAR: No Edema. Peripheral pulses normal and equal in all extremities. ABDOMEN: Soft, non tender and non distended. No rebound or guarding, and no masses palpated. Bowel Sounds normal. MUSCULOSKELETAL: Mild atrophy bilateral lower extremity with dependent edema and multiple excoriation lesions of bilateral lower extremity with dressing in place. Edema is +2 NEUROLOGIC EXAM: Alert and oriented x 3 No focal sensory or strength deficits. Speech normal. Follows commands. PSYCHIATRIC: Mood normal. SKIN: detail exam as documented in skin assessment - Constitutional Vitals: Temp Pulse Resp BP Pulse Ox 97.5 F L 71 18 95/43 91 08/20/21 05:16 08/20/21 05:16 08/20/21 05:16 08/20/21 05:16 08/20/21 05:16 Plan Activity: advance as tolerated, fall precautions Diet: renal Special Instructions: record daily weights, record daily BP diary Follow up with: MALIKA CRABTREE MD [Primary Care Provider] - 7 Days ANIRUDH STEWART MD [Staff Physician] - 7 Days Prescriptions: Doxycycline Hyclate [Doxycycline Hyclate TAB] 100 mg PO Q12HR #14 tab Ferrous Sulfate [Feosol 325 MG tab] 325 mg PO QDAY #30 tablet Multivitamin Tab [Multiple Vitamin TAB (Theragran)] 1 each PO QDAY #30 tablet HYDROcodone/APAP 5-325 [[place] 5-325 mg TAB] 1 - 2 each PO Q6HR PRN #14 tablet PRN Reason: Pain Midodrine [Proamatine] 5 mg PO TID #30 tablet
[2021-08-20] MEDS: MULTIVITAMINS ,THERAPEUTIC TAB PO SCH (11:18)
[2021-08-20] MEDS: TAMSULOSIN 0.4 MG CAP PO SCH (11:18)
[2021-08-20] MEDS: AZITHROMYCIN 250 MG TAB PO SCH (11:18)
[2021-08-20] MEDS: FERROUS SULFATE 325 MG TAB PO SCH (11:18)
[2021-08-20] MEDS: CALCITRIOL 0.25 MCG CAP PO SCH (11:19)
[2021-08-20] MEDS: ENOXAPARIN 120 MG/0.8 ML INJ SUB-Q SCH (11:20)
[2021-08-20] MEDS: VENLAFAXINE 75 MG TAB PO SCH (11:20)
--- NOTE | 2021-08-20 14:05 | Progress Note ---
Assessment and Plan 1.ESRD: Patient is on maintenance hemodialysis three times a aweek, TTS schedule. Last outpatient HD 08/16. Hmeodialysis: 08/18, 08/20. 2. FEN: Hyperkalemia, s/p improved. Volume overload, UF with HD as tolerated. Monitor lytes and volume status. 3. Acute hypoxic resp failure, POA: 2/2 PNA and volume overload. on RA Volume control thru HD. Monitor. 4. Pneumonia, POA: Covid-19 negative. Abx. Follow cultures. 5. HTN: Resume home meds and adjust as needed. 6. Normocytic Anemia, POA: Epogen with HD. Trend. 7. Chronic LE wound: Wound care. Subjective: Patient was seen and examined at the bedside. Doing ok. Examination: General appearance: well-developed, appears stated age, no distress HEENT: atraumatic Neck: trachea midline Respiratory: diminished breath sounds Heart: S1S2, regular, no murmur Abdomen: soft, obese, bowel sounds heard, NT Integumentary: b/l LE dressing and stasis changes noted Neurologic: AO, non-focal Ext: trace LE edema Hemodialysis access: L arm AVF Subjective Date of service: 08/20/21 Objective - Vital Signs Vital signs: Vital Signs - 12hr 08/20/21 08/20/21 08/20/21 05:16 10:00 11:55 Temperature 97.5 F L Pulse Rate 71 Respiratory 18 Rate Blood Pressure 95/43 O2 Sat by Pulse 91 98 Oximetry O2 Sat by Pulse 98 Oximetry [ Anterior Bilateral] 08/20/21 08/20/21 08/20/21 12:00 12:15 12:30 Temperature Pulse Rate 70 70 65 Respiratory Rate Blood Pressure 118/56 116/61 111/52 O2 Sat by Pulse Oximetry O2 Sat by Pulse Oximetry [ Anterior Bilateral] 08/20/21 08/20/21 08/20/21 12:45 13:00 13:15 Temperature Pulse Rate 70 75 73 Respiratory Rate Blood Pressure 113/51 123/57 125/64 O2 Sat by Pulse Oximetry O2 Sat by Pulse Oximetry [ Anterior Bilateral] 08/20/21 08/20/21 08/20/21 13:30 13:45 14:00 Temperature Pulse Rate 74 72 75 Respiratory Rate Blood Pressure 125/60 120/52 122/60 O2 Sat by Pulse Oximetry O2 Sat by Pulse Oximetry [ Anterior Bilateral] - Lab 08/20/21 07:24 08/20/21 07:24 Most recent lab results Calcium 8.8 mg/dL (8.4-10.2) 08/20/21 07:24 Medications & Allergies - Medications Allergies/Adverse Reactions: Allergies No Known Allergies Allergy (Unverified 12/12/18 06:38) Home Medications: Home Medications Medication Instructions Recorded Confirmed Last Taken Type Furosemide [Lasix TAB] 20 mg PO DAILY 12/12/18 08/18/21 12/10/18 History L.acidoph,Paracasei, B.lactis 1 each PO DAILY 12/12/18 08/18/21 12/10/18 History [Probiotic] Multivit-Min36/Iron/Folic Acid 1 each PO DAILY 12/12/18 08/18/21 12/10/18 History [Geritol Complete Tablet] Tamsulosin [Flomax] 0.4 mg PO QDAY 12/12/18 08/18/21 12/10/18 History Venlafaxine [Effexor] 75 mg PO DAILY 12/12/18 08/18/21 12/10/18 History Zolpidem (Nf) [Ambien (Nf)] 10 mg PO QHS 12/12/18 08/18/21 12/11/18 History calcitrioL [Rocaltrol] 1 cap PO DAILY 12/12/18 08/18/21 12/10/18 History Doxycycline Hyclate [Doxycycline 100 mg PO Q12HR #14 tab 08/20/21 Unknown Rx Hyclate TAB] Ferrous Sulfate [Feosol 325 MG tab] 325 mg PO QDAY #30 tablet 08/20/21 Unknown Rx HYDROcodone/APAP 5-325 [[place] 1 - 2 each PO Q6HR PRN #14 tablet 08/20/21 Unknown Rx 5-325 mg TAB] Midodrine [Proamatine] 5 mg PO TID #30 tablet 08/20/21 Unknown Rx Multivitamin Tab [Multiple Vitamin 1 each PO QDAY #30 tablet 08/20/21 Unknown Rx TAB (Theragran)] Active Medications: Generic Name Dose Route Start Last Admin Trade Name Freq PRN Reason Stop Dose Admin Acetaminophen 650 mg 08/18/21 00:34 Acetaminophen 325 Mg Tab PO Q4H PRN Pain MILD(1-3)/Fever >100.5/NARAYAN Al Hydrox/Mg Hydrox/Simethicone 30 ml 08/18/21 00:34 Alum-Mag Hydroxide-Simethicone 178-220-14wl/5ml Oral Liqd 30 Ml PO Q4H PRN Indigestion Azithromycin 500 mg 08/19/21 13:00 08/20/21 11:18 Azithromycin 250 Mg Tab PO 08/21/21 10:01 500 mg QDAY JACOB Administration Protocol Calcitriol 0.25 mcg 08/18/21 10:00 08/20/21 11:19 Calcitriol 0.25 Mcg Cap PO 0.25 mcg DAILY JACOB Administration Enoxaparin Sodium 110 mg 08/18/21 10:00 08/20/21 11:20 Enoxaparin 120 Mg/0.8 Ml Inj SUB-Q 110 mg Q24HR JACOB Administration Ferrous Sulfate 325 mg 08/18/21 10:00 08/20/21 11:18 Ferrous Sulfate 325 Mg Tab PO 325 mg QDAY JACOB Administration Furosemide 20 mg 08/18/21 10:00 08/19/21 10:45 Furosemide 20 Mg Tab PO 20 mg DAILY JACOB Administration Heparin Sodium (Porcine) 3,000 unit 08/18/21 11:06 Heparin 10,000 Units/10 Ml Vial IV YRN PRN hemodialysis Hydralazine HCl 5 mg 08/18/21 00:48 Hydralazine 20 Mg/1 Ml Inj IV Q4HR PRN Hypertension Sodium Chloride 100 mls @ 999 mls/hr 08/18/21 11:06 Nacl 0.9% IV YRN PRN Hypotension Cefepime HCl 1 gm in 100 mls @ 200 mls/hr 08/18/21 18:00 08/19/21 17:33 Cefepime/Ns 1 Gm/100 Ml IV 08/22/21 18:29 200 mls/hr QPM JACOB Administration Protocol Vancomycin HCl 1 gm in 250 mls @ 167.007 mls/hr 08/20/21 22:00 Vancomycin/Ns 1 Gm/250 Ml IV 08/21/21 02:00 ONCE@2200 JACOB Magnesium Hydroxide 30 ml 08/18/21 00:34 Magnesium Hydroxide (Mom) Oral Liqd Udc PO Q4H PRN Constipation Morphine Sulfate 2 mg 08/18/21 00:34 08/18/21 06:00 Morphine 2 Mg/1 Ml Inj IV 2 mg Q4H PRN Administration Pain, Moderate (4-6) Morphine Sulfate 4 mg 08/18/21 00:34 Morphine 4 Mg/1 Ml Inj IV Q4H PRN Pain , Severe (7-10) Multivitamins 1 each 08/18/21 10:00 08/20/21 11:18 Multivitamins ,Therapeutic Tab PO 1 each QDAY JACOB Administration Ondansetron HCl 4 mg 08/18/21 00:34 Ondansetron 4 Mg/2 Ml Inj IV Q8H PRN Nausea And Vomiting Oxycodone/Acetaminophen 1 tab 08/18/21 00:34 08/20/21 11:19 Oxycodone /Acetaminophen 5-325mg Tab PO 1 tab Q6H PRN Administration Pain, Moderate (4-6) Senna 8.6 mg 08/18/21 00:34 Sennosides 8.6 Mg Tab PO Q12HR PRN Constipation Sodium Chloride 10 ml 08/18/21 00:34 Sodium Chloride 0.9% 10 Ml Flush Syringe IV PRN PRN LINE FLUSH Tamsulosin HCl 0.4 mg 08/18/21 10:00 08/20/21 11:18 Tamsulosin 0.4 Mg Cap PO 0.4 mg QDAY JACOB Administration Trazodone HCl 50 mg 08/18/21 00:43 Trazodone 50 Mg Tab PO QHS PRN Insomnia Venlafaxine HCl 75 mg 08/18/21 10:00 08/20/21 11:20 Venlafaxine 75 Mg Tab PO 75 mg DAILY JACOB Administration
[2021-08-20 18:43] VITALS: BP 132/65
[2021-08-20] MEDS ORDERED: VANCOMYCIN/NS 1 GM/250 ML 1 GM/250 ML BAG IV SCH (22:00)
--- NOTE | 2021-08-22 14:26 | Electrocardiograph Report ---
[facility] Test Date: 2021-08-17 Test Time: 22:14:55 Pat Name: MERYL MERCADO Department: Room: A376 Gender: M Computer Network Specialist: MELISSA : 1960 Requested By: HIREN ACHARYA III Order Number: [id number] Reading MD: Dionne Romero Measurements Intervals [place] Rate: 112 P: 57 [place]: 162 QRS: 56 QRSD: 95 T: 85 QT: 311 QTc: 425 Interpretive Statements Sinus tachycardia No previous ECG available for comparison Electronically Signed On 08-22-2021 14:25:43 EDT by Dionne Romero
== END 2021-08-20 17:15 | DRG 871 ==
LOC: ED 21:57 → 3A 08-18 00:35 → OBSVTOIN 08-18 10:06 → 3A 08-18 14:13
PROVIDERS: ADMIT Internal Medicine Geriatric Medicine; ATTEND Internal Medicine
PROC: 5A1D70Z Performance of Urinary Filtration, Intermittent, Less than 6 Hours Per Day (ICD-10-PCS; principal; 2021-08-18)
PROC: 5A1D70Z Performance of Urinary Filtration, Intermittent, Less than 6 Hours Per Day (ICD-10-PCS; 2021-08-20)
DX: A41.9 Sepsis, unspecified organism (principal); J18.9 Pneumonia, unspecified organism; N18.6 End stage renal disease; J96.01 Acute respiratory failure with hypoxia; I13.2 Hypertensive heart and chronic kidney disease with heart failure and with stage 5 chronic kidney disease, or end stage renal disease; Z20.822 Contact with and (suspected) exposure to COVID-19; Z99.2 Dependence on renal dialysis; I50.9 Heart failure, unspecified; N40.0 Benign prostatic hyperplasia without lower urinary tract symptoms; F32.9 Major depressive disorder, single episode, unspecified; D64.9 Anemia, unspecified; E87.6 Hypokalemia; G89.29 Other chronic pain; M54.9 Dorsalgia, unspecified
CPT/HCPCS: 36415; 71045; 78580; 80053; 80074; 80202; 82140; 82728; 82947; 82962; 83036; 83615; 84145; 85007; 85025; 85027; 85379; 86140; 87040; 93005; 93970; 94760; G0378; A9540; J0456; J0692; J0696; J0885; J1100; J1644; J1650; J2270; J3370; J7040; U0003